=== PATIENT | male | born 1945 | race Caucasian/White ===

== ENCOUNTER 2018-07-14 07:54 | Inpatient (IN) | payer MEDICARE ==
--- OUTSIDE RECORDS SUMMARY | 2018-07-14 08:25 | XMS REPORT | Continuity of Care Document ---
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 Active eye, mild stage Onset: 04/23/2015 Mucopurulent conjunctivitis Aamir Duron O.D. 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 Active Onset: 07/01/2014 Scarred macula Aamir Duron O.D. Active Onset: 07/01/2014 Nuclear senile cataract Aamir Duron O.D. Active Onset: 07/01/2014 Vitreous degeneration Aamir Durno O.D. Active Onset: 11/18/2013 Glaucoma Aamir Duron O.D. Active Family History Date Family Member(s) Problem(s) Comments General Noncontributory Father due to Pneumonia () Father Arthritis Mother due to Congestive Heart Failure () Mother Age-Related Macular Degeneration Mother Glasses Mother Arthritis Mother Cancer Mother Heart Disease Social History Type Date Description Comments Sex Unknown ETOH Use Occasionally consumed alcohol in the past Tobacco Use Start: Unknown End: Unknown Patient is a former smoker Smoking Status Reviewed: 06/24/18 Patient is a former smoker Allergies, Adverse Reactions, Alerts Date Description Reaction Status Severity Comments 11/18/2013 Statins Active 11/18/2013 Tricor Active 11/18/2013 Seasonal Active 11/18/2013 Adhesives Active 11/18/2013 Codeine Active 11/18/2013 Latex Active Medications Medication Date Status Form Strength Qnty SIG Indications Ordering Provider Latanoprost 12/19/ Active Solution 0.005% 2.5un 1 drop Aamir 2017 its QHS OS Otoole, OD Alphagan P 12/19/ Active Solution 0.1% 5ml 1 drop Aamir 2017 twice a Otoole, day left OD eye Patanol 11/29/ Active Solution 0.1% 5ml 1 drop H40.89 Paul 2015 both Mullins, eyes M.D. twice a day during allergy season Escitalopram / Active Tablets 20mg Unknown Oxalate 0000 Loperamide HCL / Active Capsules 2mg Scott Duff MD Sucralfate / Active Tablets 1gm Unknown 0000 Tudorza Pressair / Active Aerosol 400mcg/Ac Unknown 0000 t Budesonide / Active Suspension 0.5mg/2ML Unknown 0000 Omeprazole / Active Capsules DR 40mg Brad Scott AVILEZ Divalproex Sodium / Active Tablets ER 500mg Unknown ER 0000 24HR Clonazepam Odt / Active Tablets 0.25mg Unknown 0000 Dispers Metolazone / Active Tablets 2.5mg Brad 0000 Scott AVILEZ Lovaza / Active Capsules 1gm Brad 0000 Scott AVILEZ Montelukast / Active Tablets 10mg Unknown Sodium 0000 Trihexyphenidyl / Active Tablets 5mg Unknown HCL 0000 Zyflo CR / Active Tablets ER 600mg Brad 0000 12HR Scott AVILEZ Torsemide / Active Tablets 20mg Brad 0000 Scott AVILEZ Latuda / Active Tablets 80mg Unknown 0000 Potassium / Active Tablets ER 10Meq Unknown Chloride ER 0000 Albuterol Sulfate / Active Nebulizer (2.5mg/3M Unknown 0000 L) 0.083% Prednisone / Active Tablets 10mg Unknown 0000 Latuda / Active Tablets 60mg Unknown 0000 Hydrocodone/Aceta / Active Tablets 10-325mg Unknown minophen 0000 Advair Diskus / Active Aerosol 500-50mcg Unknown 0000 /Dose Xopenex HFA / Active Aerosol 45mcg/Act Unknown 0000 Allopurinol / Active Tablets 300mg [place] 0000 Scott AVILEZ Ibuprofen / Active Tablets 600mg Unknown 0000 Colcrys / Active Tablets 0.6mg Endo MD, 0000 Dale Abilify / Active Tablets 5mg Unknown 0000 Budesonide / Active Suspension 0.5mg/2ML Unknown 0000 Divalproex Sodium / Active Tablets ER 500mg Unknown ER 0000 24HR Proair HFA / Active Aerosol 108(90Bas Unknown 0000 e) mcg/Act Topiramate / Active Tablets 100mg Unknown 0000 Latanoprost 12/27/ Hx Solution 0.005% 7.5ml 1 drops H40.32x1 Aamir 2016 - QHS OS Otoole, 12/19/ OD 2018 Alphagan P 12/27/ Hx Solution 0.1% 5ml 1 drops H40.32x1 Aamir 2016 - twice a Otoole, 12/19/ day left OD 2018 eyes Latanoprost 03/01/ Hx Solution 0.005% 7.500 1 drops H40.32x1 Paul 2015 - ml left Harpreet, 12/27/ eyes M.D. 2017 every night Alphagan P 03/01/ Hx Solution 0.1% 15ml 1 drop H40.32x1 Paul 2015 - left Mullins, 12/27/ eyes M.D. 2016 twice a day Moxeza 04/23/ Hx Solution 0.5% 3ml 1 drop H10.023 Aamir 2014 - both Oliverio, 07/21/ eyes two O.D. 2015 times a day for one week Prednisolone 03/26/ Hx Suspension 1% 5ml 1 drop H15.112 Aamir Anderson 2014 - left eye Oliverio, 04/23/ four O.D. 2015 times a day, shake well Alphagan P 08/20/ Hx Solution 0.1% 10ml 2 drops H40.89 Aamir 2014 - left eye Oliverio, 03/01/ twice a O.D. 2015 day Patanol 04/21/ Hx Solution 0.1% 5ml 1 drop 365.89 Aamir 2013 - both Oliverio, 07/21/ eyes O.D. 2015 twice a day during allergy season Tobradex 11/18/ Hx Suspension 0.3-0.1% 1ml 1 drops Aamir 2013 - both Oliverio, 07/01/ eyes O.D. 2013 four times a day Latanoprost 11/18/ Hx Solution 0.005% 7.5ml 2 drops H40.89 Aamir 2013 - left eye Oliverio, 03/01/ every O.D. 2015 night Potassium / Hx Tablets ER 10Meq [place] Chloride ER 0000 Lanny AVILEZ, Scott 2017 Allopurinol / Hx Tablets 100mg Brad 0000 Lanny AVILEZ, Scott 2016 Hydrocodone/Aceta /00/ Hx Tablets 10-325mg [place] minophen 0000 Lanny AVILEZ, Scott 2016 Hydrocodone/Aceta 00/00/ Hx Tablets 10-325mg Unknown minophen 0000 - 2016 Clonazepam / Hx Tablets 0.5mg Unknown 0000 - 2017 Mupirocin / Hx Ointment 2% Brad Ca MD, Scott 2017 Cephalexin 00/ Hx Capsules 500mg Unknown 0000 - 2017 Immunizations Description No Information Available Vital Signs Date Vital Result Comment 06/24/2018 2:39pm Intraocular Pressure Right Eye 28 mmHg tonopen Intraocular Pressure Left Eye 22 mmHg 04/23/2018 1:52pm Intraocular Pressure Right Eye 30 mmHg tonopen Intraocular Pressure Left Eye 18 mmHg 12/19/2017 2:05pm Intraocular Pressure Right Eye 16 mmHg Intraocular Pressure Left Eye 18 mmHg 08/21/2017 2:26pm Intraocular Pressure Right Eye 16 mmHg Intraocular Pressure Left Eye 16 mmHg 04/20/2017 2:50pm Intraocular Pressure Left Eye 12 mmHg 12/27/2016 2:33pm Intraocular Pressure Right Eye 13 mmHg Intraocular Pressure Left Eye 12 mmHg 09/25/2016 1:47pm Intraocular Pressure Right Eye 15 mmHg Intraocular Pressure Left Eye 13 mmHg 06/22/2016 11:16am Intraocular Pressure Right Eye 14 mmHg Intraocular Pressure Left Eye 14 mmHg 03/01/2016 2:17pm Intraocular Pressure Right Eye 14 mmHg Intraocular Pressure Left Eye 16 mmHg 11/30/2015 1:24pm Intraocular Pressure Right Eye 16 mmHg Intraocular Pressure Left Eye 17 mmHg 07/21/2015 11:35am Intraocular Pressure Right Eye 14 mmHg Intraocular Pressure Left Eye 19 mmHg 04/01/2015 2:15pm Intraocular Pressure Left Eye 16 mmHg 03/26/2015 11:45am Intraocular Pressure Left Eye 18 mmHg 03/04/2015 11:18am Intraocular Pressure Right Eye 17 mmHg Intraocular Pressure Left Eye 14 mmHg 02/22/2015 2:08pm Intraocular Pressure Right Eye 15 mmHg Intraocular Pressure Left Eye 23 mmHg 01/04/2015 2:42pm Intraocular Pressure Right Eye 14 mmHg Intraocular Pressure Left Eye 22 mmHg 07/01/2014 10:08am Intraocular Pressure Right Eye 14 mmHg Intraocular Pressure Left Eye 15 mmHg 04/21/2014 2:37pm Intraocular Pressure Right Eye 13 mmHg Intraocular Pressure Left Eye 13 mmHg 12/29/2013 3:58pm Intraocular Pressure Right Eye 17 mmHg Intraocular Pressure Left Eye 19 mmHg 11/18/2013 1:24pm Intraocular Pressure Right Eye 16 mmHg Intraocular Pressure Left Eye 27 mmHg Results Description No Information Available Procedures Date Code Description Status 06/24/2018 20909 Eye Exam Est Intermediate Completed 04/23/2018 42478 Eye Exam Est Intermediate Completed 12/19/2017 29376 Oct, Optic Nerve Completed 12/19/2017 04116 Eye Exam Est Intermediate Completed 08/21/2017 29646 Visual Field Exam Extended, Unilateral Or Bilateral Completed 08/21/2017 66037 Eye Exam Est Intermediate Completed 04/20/2017 48181 Ophthalmoscopy Subsequent Completed 04/20/2017 17194 Eye Exam Est Intermediate Completed 12/27/2016 66660 Eye Exam Est Intermediate Completed 09/25/2016 68807 Eye Exam Est Intermediate Completed 06/22/2016 71770 Eye Exam Est Intermediate Completed 03/01/2016 25875 Oct, Optic Nerve Completed 03/01/2016 12424 Eye Exam Est Intermediate Completed 11/30/2015 22534 Eye Exam Est Comprehensive Completed 11/30/2015 87961 Ophthalmoscopy Subsequent Completed 11/30/2015 70352 Fundus Photography W/Interpretation & Report Completed 07/21/2015 44030 Visual Field Exam Extended, Unilateral Or Bilateral Completed 07/21/2015 17811 Eye Exam Est Intermediate Completed 03/26/2015 99681 Eye Exam Est Intermediate Completed 03/04/2015 21839 Oct, Optic Nerve Completed 03/04/2015 11581 Eye Exam Est Intermediate Completed 02/22/2015 97845 Eye Exam Est Intermediate Completed 07/01/2014 94583 Fundus Photography W/Interpretation & Report Completed 07/01/2014 09733 Eye Exam Est Comprehensive Completed 04/21/2014 74342 Visual Field Exam Extended, Unilateral Or Bilateral Completed 04/21/2014 32687 Eye Exam Est Intermediate Completed 11/18/2013 95784 Oct, Optic Nerve Completed 11/18/201376803 Eye Exam Est Intermediate Completed Encounters Type Date Location Provider Dx Diagnosis Office Visit 04/23/2015 Main Office Aamir Duron, H10.023 Other mucopurulent 9:45a O.D. conjunctivitis, bilateral Office Visit 04/01/2015 Main Office Aamir Duron, H15.112 Episcleritis 1:45p O.D. periodica fugax, left eye Office Visit 01/04/2015 Main Office Aamir Duron, 365.89 Glaucoma Other Spec 2:15p O.D. Office Visit 12/29/2013 Main Office Aamir Duron, 365.89 Glaucoma Other Spec 3:15p O.D. 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
--- OUTSIDE RECORDS SUMMARY | 2018-07-14 08:25 | XMS REPORT | Continuity of Care Document ---
:1945 External Reference #:[id number] Author Name Jules Varela M.D. Address [address] [facility] [place] [address] [place] [address] Care Team Providers Name Role Phone Scott Salinas MD Primary Care Physician Unavailable Payers Type Date Identification Numbers Payment Provider Subscriber Expires: 2012 Policy Number: [id number] [facility] Caitlin Martinez Group Number: [id number] [address] PayID: [id number] [place] [address] Effective: 1997 Policy Number: [id number] Medicare Lenny Martinez PayID: [id number] [address] [facility] [place] [address] Effective: 1997 Policy Number: [id number] Medicare Lenny Martinez Expires: 2013 PayID: [id number] [address] [facility] [address] Effective: 2018 Policy Number: [id number] Medicaid Lenny Martinez Group Name: 1 1 [address] PayID: [id number] [place] [address] Advance Directives Description No Information Available Problems Date Description Provider Status Onset: 10/01/2012 Gout Dale Esteves M.D. Active Onset: 10/23/2014 Localized, primary osteoarthritis Dale Esteves M.D. Active Onset: 10/23/2014 Chronic obstructive lung disease Dale Esteves M.D. Active Onset: 03/08/2015 Essential tremor Pauline Perdue NP Active Onset: 03/16/2016 Displaced fracture of base of neck of Bridger Pepe M.D. Active right femur, subsequent encounter for closed fracture with routine healing Onset: 03/16/2016 Aftercare following joint replacement Bridger Pepe M.D. Active surgery Family History Date Family Member(s) Problem(s) Comments General MOther had cancer, SIster has MS General Father had heart disease, high blood pressure and stroke Father due to Stroke () Father due to Heart Disease () Mother due to COPD () Mother due to Cancer, Breast () Social History Type Date Description Comments Sex Unknown Lives [facility] Occupation Retired Tobacco Use Start: Unknown Patient is a current cigarette smoker, smokes every day Tobacco Use Start: Unknown currently smokes 1/2 Pack Daily Smoking Status Reviewed: 02/05/18 currently smokes 1/2 Pack Daily ETOH Use Denies alcohol use Tobacco Use Start: Unknown End: Patient is a former quit in 2014 Unknown smoker Exercise Type/Frequency Exercises rarely Allergies, Adverse Reactions, Alerts Date Description Reaction Status Severity Comments 10/01/2012 Codeine Active 10/01/2012 Statins Active 10/01/2012 Tricor Active 03/24/2014 Latex Contact dermatitis Active Moderate 10/07/2014 Adhesive Tape Active Medications Medication Date Status Form Strength Qnty SIG Indications Ordering Provider Clonazepam 10/11 Active Tablets 0.5mg 90tab 1 by mouth s three times a alek Varela M.DAdela Gabapentin 05/17 Active Capsules 300mg 270ca 3 by mouth ps three times a alek Varela M.DAdela Allopurinol 12/24 Active Tablets 300mg 90tab take one M10.9 Zsofia s tablet by Cristhian, mouth every ROPE CUTTER day Omeprazole 10/[address] 40mg 60cap 1 po bid s Ordering Provider Albuterol 10/01 Active Nebulizer (2.5mg/3M 100un inhale three Other L) 0.083% its ml three Ordering times a day Provider Multivitamins 10/01 Active Capsules 30cap 1 capsule s silvio;y Ordering Provider Singulair 10/01 Active Tablets 10mg 90tab 1 po qd s Ordering Provider Potassium 10/01 Active Tablets ER 10Meq 60tab 5 caps ad Other Chloride s Ordering Provider Prednisone 10/01 Active Tablets 10mg 30tab 1/2 tab po /2012 s daily Ordering Provider Xopenex HFA Active Aerosol 45mcg/Act 1unit 2 puffs qid Unknown / s prn Sucralfate Active Tablets 1gm 60tab 1 by mouth Unknown / s tid Divalproex Active Tablets ER 500mg 60tab take 2 tabs Unknown Sodium ER /0000 24HR s by mouth at bedtime Tudorza Active Aerosol 400mcg/Ac 60uni 1 puff bid Unknown Pressair t ts Budesonide Active Suspension 0.5mg/2ML 60uni 1 vial via Unknown ts nebulizer twice daily Advair Diskus Active Aerosol 500-50mcg 60uni 1 puff twice Unknown /0000 /Dose ts a day Lovaza Active Capsules 1gm 180ca 1 by mouth Unknown / ps tid Torsemide Active Tablets 20mg 90tab 1 by mouth Unknown / s every day Loperamide HCL Active Tablets 2mg 20tab qid prn Unknown / s Lantanoprost Active 0.005% 1 gtt to L Unknown Eye Drops /0000 eye qhs Patanol Active Solution 0.1% 1 drop both Unknown /0000 eyes every day as needed allergies Acetaminophen Active Tablets 500 two tabs Unknown /0000 twice daily as needed Metolazone Active Tablets 2.5mg take one Unknown / tablet by mouth every other day Brimonidine Active Solution 0.15% instill one Unknown Tartrate /0000 drop in each eye two times daily Tamsulosin HCL Active Capsules 0.4mg 1 by mouth Unknown / every day Miralax Active Packet 3350NF 17 gm every Unknown / day as needed Olopatadine Active Solution 0.1% 1 drop in Unknown HCL /0000 eyes twice a day Propranolol Active Tablets 20mg 3 x per day Unknown HCL /0000 as directed Clotrimazole Active Cream 1% apply qw Unknown / Desloratadine Active Tablets 5mg 1 po qd Unknown / Saphris Active Tablets Sub 5mg Unknown /0000 Fluticasone 00/00 Active Suspension 50mcg/Act 2 sprays in Unknown Propionate 0000 nose daily Dextromethorph Active Solution 10-100mg/ 5ml every 4 Unknown an-Guaifenesin /0000 5ML hours as needed for cough Nicotine Mini Active Lozenges 4mg one lozenge Unknown as needed every 6-8 hours as needed Diclofenac 00 Active Solution 1.5% 40 drops onto Zsofia skin of Cristhian, bilateral ROPE CUTTER knees four times daily Mucinex Active Tablets ER 600mg twice a day Unknown 12HR as needed Voltaren 10/25 Hx Gel 1% 1tube apply to M79.643 s affected area Cristhian, - twice a day, ROPE CUTTER 08/22 as needed /2016 Primidone 08/06 Hx Tablets 50mg 180ta Take 3 tabs Jules S. bs bid Lanny Varela M.D. 09/13 Topiramate 03/03 Hx Tablets 100mg 60tab 1 po bid s GUILHERME Perdue - 09/19 Topiramate 12/30 Hx Tablets 25mg 120ta 1 tab qam x 2 bs wks, then 2 GUILHERME Perdue - tabs qam x 2 04/13 wks, then tabs qam x 2 wks, then 4 tabs qam (please also take 100mg dose PO QHS) Topiramate 10/07 Hx Tablets 25mg 210ta 3 po qhs then bs 4 po qhs. GUILHERME Perdue - 12/29 Clonazepam 03/25 Hx Tablets 0.25mg 1-2 by mouth Dispers four times a Ordering - day as needed Provider 03/25 Allopurinol 09/26 Hx Tablets 100mg 60tab 2 po qd 274.9 rafita Esteves - M.DAdela 12/24 Colcrys 05/27 Hx Tablets 0.6mg 30tab Take One 274.9 s Tablet By Linn, - Mouth Once M.D. 05/29 /2012 Zyflo 10/01 Hx Tablets 600mg 2 tabs by Other mouth bid Ordering - Provider 08/22 Ventolin HFA 10/01 Hx Aerosol 108(90Bas 1mont 2 puffs po Other e) h qid prn Ordering - mcg/Act Provider 03/02 Pulmicort 10/01 Hx Suspension 0.5mg/2ML 30uni one reespule ts per day to Ordering - add to Provider 12/29 soult Clonazepam 10/01 Hx Tablets 0.5mg 60tab 1 po bid prn Other s Ordering - Provider 03/25 Lexapro 10/01 Hx Tablets 20mg 90tab 1 po qd s Ordering - Provider 09/13 Depakote ER 10/01 Hx Tablets ER 500mg 60tab 2 po bid 24HR s Ordering - Provider 03/23 Abilify 10/01 Hx Tablets 20mg 30tab 1 po qd s Ordering - Provider 05/29 Torsemide 10/01 Hx Tablets 20mg 100ta bid Lanny Crouch M.D. 09/26 Advair Diskus 10/01 Hx Aerosol 500-50mcg 2unit 1 puff po bid /Dose s Lanny Esteves M.D. 09/26 Hydrocodone/Ac 10/01 Hx Tablets 5-325mg 60tab 1-2 po qid Other etamin s prn Ordering - Provider 10/06 Ibuprofen 10/01 Hx Tablets 600mg 120ta 1 po tid prn bs Ordering - Provider 12/24 Lovaza 10/01 Hx Capsules 1gm 60cap 1 po bid Lanny Munoz M.D. 09/26 Allopurinol 10/01 Hx Tablets 300mg 90tab 1 po qd s Lanny Esteves M.D. 09/26 Colchicine 10/01 Hx Tablets 0.6mg 30tab 1 po qd 274.9 Lanny Munoz M.D. 05/27 Zaroxolyn Hx Tablets 2.5mg 30tab 1 tab q2 days Unknown /0000 s - 12/29 Bactroban Hx Ointment 2% 15g apply to Unknown /0000 affected area - bid 03/25 Latuda Hx Tablets 40mg 1 po qd Unknown /0000 - 08/22 Clonazepam 00 Hx Tablets 0.25mg 60tab 1 by mouth Jules S. / Dispers s every morning Nichole, - and 1 every M.D. 10/11 night at bedtime Gabapentin 00 Hx Capsules 300mg 1 by mouth Unknown /0000 every morning - in addition 04/26 to 600MG dose /2014 Gabapentin Hx Tablets 600mg 1 by mouth Jules S. / three times Nichole, - daily M.D. 05/17 Naftin Hx Cream 1% topically to Unknown /0000 affected area - between toes 09/13 twice daily Hydrocodone-Ac Hx Tablets 5-325mg 1 by mouth Unknown etaminophen /0000 every 4-6 - hours prn. 09/19 Amoxicillin/Cl Hx Tablets 875-125mg one tablet by Unknown avulanate /0000 mouth twice Potassium - daily for 10 Alphagan P Hx Solution 0.1% 2 drop left Unknown /0000 eye every - evening 08/22 Vitamin D Hx daily Unknown /0000 - 08/22 Saphris Hx Tablets Sub 10mg 1 tab Unknown / sublingually - bid 08/23 Clarinex Hx Tablets 5mg 1 by mouth Unknown /0000 every day - 09/13 Senna Lax Hx Tablets 8.6mg take 2 Unknown /0000 tablets by - mouth at 02/04 bedtime needed: max 4 tablets by mouth two times a day Potassium Hx Tablets ER 10Meq 1 by mouth Unknown Chloride ER /0000 every day - 09/13 Immunizations Description No Information Available Vital Signs Date Vital Result Comment 02/05/2018 1:54pm Height 67 inches 5'7" Weight 197.00 lb Heart Rate 70 /min BP Systolic 118 mmHg BP Diastolic 68 mmHg BMI (Body Mass Index) 30.9 kg/m2 07/31/2017 2:03pm Height 67 inches 5'7" Weight 190.00 lb Heart Rate 72 /min BP Systolic Sitting 128 mmHg BP Diastolic Sitting 66 mmHg Respiratory Rate 18 /min BMI (Body Mass Index) 29.8 kg/m2 01/30/2017 1:32pm Height 67 inches 5'7" Weight 195.00 lb Heart Rate 92 /min BP Systolic Sitting 98 mmHg BP Diastolic Sitting 64 mmHg Respiratory Rate 32 /min BMI (Body Mass Index) 30.5 kg/m2 10/11/2016 3:05pm Height 67 inches 5'7" Weight 197.00 lb Heart Rate 72 /min BP Systolic Sitting 128 mmHg BP Diastolic Sitting 68 mmHg Respiratory Rate 17 /min BMI (Body Mass Index) 30.9 kg/m2 08/23/2016 3:42pm Height 67 inches 5'7" Weight 204.00 lb Heart Rate 77 /min BP Systolic Sitting 127 mmHg BP Diastolic Sitting 67 mmHg Respiratory Rate 17 /min BMI (Body Mass Index) 31.9 kg/m2 05/17/2016 11:43am Height 67 inches 5'7" Weight 217.00 lb Heart Rate 88 /min BP Systolic Sitting 132 mmHg BP Diastolic Sitting 74 mmHg BMI (Body Mass Index) 34.0 kg/m2 04/26/2016 1:40pm Height 67 inches 5'7" Weight 222.00 lb per patient Heart Rate 86 /min BP Systolic Sitting 132 mmHg BP Diastolic Sitting 72 mmHg Pain Level 5 5/10 pain level BMI (Body Mass Index) 34.8 kg/m2 04/26/2016 12:55pm Height 67 inches 5'7" Weight 234.00 lb Heart Rate 100 /min BP Systolic Sitting 120 mmHg BP Diastolic Sitting 70 mmHg Respiratory Rate 16 /min Body Temperature 96.9 F Pain Level 6 BMI (Body Mass Index) 36.6 kg/m2 03/16/2016 2:29pm Height 67 inches 5'7" Weight 234.00 lb BMI (Body Mass Index) 36.6 kg/m2 11/16/2015 2:41pm Height 67 inches 5'7" Weight 234.00 lb Heart Rate 84 /min BP Systolic Sitting 128 mmHg BP Diastolic Sitting 72 mmHg Respiratory Rate 20 /min BMI (Body Mass Index) 36.6 kg/m2 10/26/2015 1:56pm Height 67 inches 5'7" Weight 240.00 lb Heart Rate 88 /min BP Systolic Sitting 124 mmHg BP Diastolic Sitting 68 mmHg Pain Level 5 BMI (Body Mass Index) 37.6 kg/m2 09/21/2015 10:46am Height 67 inches 5'7" Heart Rate 72 /min BP Systolic Sitting 134 mmHg BP Diastolic Sitting 82 mmHg Respiratory Rate 15 /min 08/06/2015 10:27am Height 67 inches 5'7" Weight 230.00 lb Heart Rate 80 /min BP Systolic Sitting 128 mmHg BP Diastolic Sitting 62 mmHg Respiratory Rate 20 /min BMI (Body Mass Index) 36.0 kg/m2 04/26/2015 3:33pm Height 67 inches Weight 236.00 lb Heart Rate 104 /min BP Systolic Sitting 120 mmHg BP Diastolic Sitting 76 mmHg Respiratory Rate 38 /min Pain Level 5 BMI (Body Mass Index) 37.0 kg/m2 03/03/2015 3:15pm Heart Rate 84 /min BP Systolic Sitting 112 mmHg BP Diastolic Sitting 64 mmHg Respiratory Rate 16 /min 12/30/2014 1:16pm Heart Rate 64 /min BP Systolic Sitting 120 mmHg BP Diastolic Sitting 66 mmHg Respiratory Rate 16 /min 10/23/2014 2:01pm Height 70 inches 5'10" Weight 241.00 lb Heart Rate 88 /min BP Systolic Sitting 124 mmHg BP Diastolic Sitting 60 mmHg Pain Level 4 BMI (Body Mass Index) 34.6 kg/m2 10/07/2014 10:12am Height 70 inches 5'10" Weight 241.00 lb Heart Rate 60 /min BP Systolic Sitting 124 mmHg BP Diastolic Sitting 64 mmHg Respiratory Rate 16 /min BMI (Body Mass Index) 34.6 kg/m2 03/24/2014 2:07pm Height 70 inches 5'10" Weight 237.00 lb stated Heart Rate 96 /min BP Systolic 116 mmHg BP Diastolic 78 mmHg Pain Level 2 BMI (Body Mass Index) 34.0 kg/m2 12/24/2013 2:07pm Height 70 inches 5'10" Weight 239.00 lb Heart Rate 88 /min BP Systolic Sitting 106 mmHg BP Diastolic Sitting 64 mmHg Pain Level 8 O2 % BldC Oximetry 96 % 5 liter02 BMI (Body Mass Index) 34.3 kg/m2 09/26/2013 1:00pm Height 70 inches 5'10" Weight 258.00 lb Heart Rate 75 /min BP Systolic Sitting 114 mmHg BP Diastolic Sitting 68 mmHg BMI (Body Mass Index) 37.0 kg/m2 05/29/2013 1:04pm Height 70 inches 5'10" Weight 257.00 lb Heart Rate 88 /min BP Systolic Sitting 120 mmHg BP Diastolic Sitting 76 mmHg BMI (Body Mass Index) 36.9 kg/m2 10/01/2012 3:18pm Height 70 inches 5'10" Weight 246.00 lb Heart Rate 86 /min BP Systolic Sitting 136 mmHg BP Diastolic Sitting 76 mmHg BMI (Body Mass Index) 35.3 kg/m2 Results Test Date Facility Test Result H/L Range Note CBC W/Manual 05/13/2013 [facility] White Blood 12.9 10^3/uL High 4.8-10.[address] [place] [address] [phone] Red Blood Count 5.24 10^6/uL 4.0-5.4 Hemoglobin 15.1 g/dL 14.0-18.0 Hematocrit 46 % 42-52 Mean Corpuscular Volume 88 fL 80-94 Mean Corpuscular Hemoglobin 29 pg 27-31 Mean Corpuscular HGB Conc 33 g/dL 31-36 Red Cell Distribution Width 17 % High 10.5-15 Platelet Count 198 10^3/uL 150-450 Mean Platelet Volume 7 um3 Low 7.4-10.4 Abs Neutrophils 9.8 10^3/uL High 1.5-7.7 Abs Lymphocytes 1.7 10^3/uL 1.0-4.8 Abs Monocytes 1.1 10^3/uL High 0-0.8 Abs Eosinophils 0.2 10^3/uL 0-0.6 Abs Basophils 0 10^3/uL 0-0.2 Abs Nucleated RBC 0.01 10^3/uL Neutrophil % 75 % 38-83 Lymphocytes % 9 % Low 25-47 Monocytes % 14 % High 0-13 Eosinophils % 1 % 0-6 Reactive Lymph % 1 % 0-6 Stomatocytes 1+ CMP Panel 05/13/2013 [facility] Sodium 133 mmol/L 133-[address] [place] [address] [phone] Potassium 3.2 mmol/L Low 3.5-5.0 Chloride 83 mmol/L Low 101-111 Co2 Carbon Dioxide 36.0 mmol/L High 22-32 Anion Gap 14.0 mmol/L High 2-11 Glucose 166 mg/dL High 70-100 Blood Urea Nitrogen 47 mg/dL High 6-24 Creatinine 2.20 mg/dL High 0.50-1.40 BUN/Creatinine Ratio 21.4 High 8-20 Calcium 10.1 mg/dL High 8.1-9.9 Total Protein 6.8 g/dL 6.2-8.1 Albumin 4.0 g/dL 3.2-5.2 Globulin 2.8 g/dL 2-4 Albumin/Globulin Ratio 1.4 1-3 Total Bilirubin 0.9 mg/dL 0.4-1.5 Alkaline Phosphatase 69 U/L 30-110 Alt 23 U/L 14-54 Ast 28 U/L 12-42 Egfr Non- 30.1 >60 Egfr 38.7 >60 1 Laboratory test 05/13/2013 [facility] Erythrocyte Sed 18 mm/Hr 0-[address] [place] [address] [phone] C Reactive Protein 2.6 mg/dL High Less than 0.5 Uric Acid 8.1 mg/dL High 2.6-7.2 CBC With 04/11/2013 [facility] White Blood 7.3 10^3/uL 4.8- 10.8 Manual Diff [address] [place] [address] [phone] Red Blood Count 4.78 10^6/uL 4.0-5.4 Hemoglobin 13.5 g/dL Low 14.0-18.0 Hematocrit 42 % 42-52 Mean Corpuscular Volume 89 fL 80-94 Mean Corpuscular Hemoglobin 28 pg 27-31 Mean Corpuscular HGB Conc 32 g/dL 31-36 Red Cell Distribution Width 17 % High 10.5-15 Platelet Count 153 10^3/uL 150-450 Mean Platelet Volume 7 um3 Low 7.4-10.4 Abs Neutrophils 5.3 10^3/uL 1.5-7.7 Abs Lymphocytes 1.2 10^3/uL 1.0-4.8 Abs Monocytes 0.5 10^3/uL 0-0.8 Abs Eosinophils 0.1 10^3/uL 0-0.6 Abs Basophils 0 10^3/uL 0-0.2 Abs Nucleated RBC 0 10^3/uL Neutrophil % 64 % 38-83 Band % 3 % 0-8 Lymphocytes % 25 % 25-47 Monocytes % 7 % 0-13 Eosinophils % 1 % 0-6 RBC Morphology Normal Normal Comp Metabolic Panel 04/11/2013 [facility] Sodium 141 mmol/L 133-[address] [place] [address] [phone] Potassium 4.1 mmol/L 3.5-5.0 Chloride 97 mmol/L Low 101-111 Co2 Carbon Dioxide 36.0 mmol/L High 22-32 Anion Gap 8.0 mmol/L 2-11 Glucose 114 mg/dL High 70-100 Blood Urea Nitrogen 11 mg/dL 6-24 Creatinine 1.10 mg/dL 0.50-1.40 BUN/Creatinine Ratio 10.0 8-20 Calcium 9.1 mg/dL 8.1-9.9 Total Protein 6.1 g/dL Low 6.2-8.1 Albumin 3.6 g/dL 3.2-5.2 Globulin 2.5 g/dL 2-4 Albumin/Globulin Ratio 1.4 1-3 Total Bilirubin 0.7 mg/dL 0.4-1.5 Alkaline Phosphatase 55 U/L 30-110 Alt 22 U/L 14-54 Ast 29 U/L 12-42 Egfr Non- 67.0 >60 Egfr 86.1 >60 2 Laboratory test 04/11/2013 [facility] Erythrocyte Sed 18 mm/Hr 0-[address] [place] [address] [phone] C Reactive Protein 2.0 mg/dL High Less than 0.5 Uric Acid 5.8 mg/dL 2.6-7.2 Comp Metabolic Panel 03/03/2013 [facility] Sodium 141 mmol/L 133-[address] [place] [address] [phone] Potassium 3.7 mmol/L 3.5-5.0 Chloride 92 mmol/L Low 101-111 Co2 Carbon Dioxide 43.0 mmol/L High 22-32 Anion Gap 6.0 mmol/L 2-11 Glucose 77 mg/dL 70-100 Blood Urea Nitrogen 15 mg/dL 6-24 Creatinine 0.80 mg/dL 0.50-1.40 BUN/Creatinine Ratio 18.8 8-20 Calcium 9.6 mg/dL 8.1-9.9 Total Protein 7.0 g/dL 6.2-8.1 Albumin 4.0 g/dL 3.2-5.2 Globulin 3.0 g/dL 2-4 Albumin/Globulin Ratio 1.3 1-3 Total Bilirubin 0.7 mg/dL 0.4-1.5 Alkaline Phosphatase 61 U/L 30-110 Alt 22 U/L 14-54 Ast 22 U/L 12-42 Egfr Non- 96.7 >60 Egfr 124.4 >60 3 Laboratory test 03/03/2013 [facility] Uric Acid 5.4 mg/dL 2.6 -7.[address] [place] [address] [phone] C Reactive Protein 1.0 mg/dL High Less than 0.5 CBC With 03/03/2013 [facility] White Blood 7.4 10^3/uL 4.8- 10.[address] [place] [address] [phone] Red Blood Count 4.75 10^6/uL 4.0-5.4 Hemoglobin 13.4 g/dL Low 14.0-18.0 Hematocrit 42 % 42-52 Mean Corpuscular Volume 88 fL 80-94 Mean Corpuscular Hemoglobin 28 pg 27-31 Mean Corpuscular HGB Conc 32 g/dL 31-36 Red Cell Distribution Width 17 % High 10.5-15 Platelet Count 134 10^3/uL Low 150-450 Mean Platelet Volume 7 um3 Low 7.4-10.4 Abs Neutrophils 4.9 10^3/uL 1.5-7.7 Abs Lymphocytes 1.5 10^3/uL 1.0-4.8 Abs Monocytes 0.7 10^3/uL 0-0.8 Abs Eosinophils 0.2 10^3/uL 0-0.6 Abs Basophils 0 10^3/uL 0-0.2 Abs Nucleated RBC 0.01 10^3/uL Neutrophil % 69 % 38-83 Band % 1 % 0-8 Lymphocytes % 21 % Low 25-47 Monocytes % 5 % 0-13 Eosinophils % 4 % 0-6 RBC Morphology Normal Normal Laboratory test 03/03/2013 [facility] Erythrocyte Sed 17 mm/Hr 0-[address] [place] [address] [phone] Laboratory test 01/30/2013 [facility] Uric Acid 6.0 mg/dL 2.6 -7.[address] [place] [address] [phone] C Reactive Protein 2.1 mg/dL High Less than 0.5 Comp Metabolic Panel 01/30/2013 [facility] Sodium 140 mmol/L 133-[address] [place] [address] [phone] Potassium 4.1 mmol/L 3.5-5.0 Chloride 90 mmol/L Low 101-111 Co2 Carbon Dioxide 42.0 mmol/L High 22-32 Anion Gap 8.0 mmol/L 2-11 Glucose 119 mg/dL High 70-100 Blood Urea Nitrogen 16 mg/dL 6-24 Creatinine 1.10 mg/dL 0.50-1.40 BUN/Creatinine Ratio 14.5 8-20 Calcium 9.6 mg/dL 8.1-9.9 Total Protein 6.9 g/dL 6.2-8.1 Albumin 3.8 g/dL 3.2-5.2 Globulin 3.1 g/dL 2-4 Albumin/Globulin Ratio 1.2 1-3 Total Bilirubin 0.8 mg/dL 0.4-1.5 Alkaline Phosphatase 64 U/L 30-110 Alt 32 U/L 14-54 Ast 28 U/L 12-42 Egfr Non- 67.0 >60 Egfr 86.1 >60 4 CBC With 01/30/2013 [facility] White Blood 7.3 10^3/uL 4.8- 10.8 Manual Diff [address] [place] [address] [phone] Red Blood Count 4.86 10^6/uL 4.0-5.4 Hemoglobin 13.4 g/dL Low 14.0-18.0 Hematocrit 42 % 42-52 Mean Corpuscular Volume 87 fL 80-94 Mean Corpuscular Hemoglobin 28 pg 27-31 Mean Corpuscular HGB Conc 32 g/dL 31-36 Red Cell Distribution Width 17 % High 10.5-15 Platelet Count 157 10^3/uL 150-450 Mean Platelet Volume 7 um3 Low 7.4-10.4 Abs Neutrophils 5.9 10^3/uL 1.5-7.7 Abs Lymphocytes 0.8 10^3/uL Low 1.0-4.8 Abs Monocytes 0.4 10^3/uL 0-0.8 Abs Eosinophils 0.1 10^3/uL 0-0.6 Abs Basophils 0 10^3/uL 0-0.2 Abs Nucleated RBC 0 10^3/uL Neutrophil % 77 % 38-83 Band % 7 % 0-8 Lymphocytes % 9 % Low 25-47 Monocytes % 6 % 0-13 Eosinophils % 1 % 0-6 Macrocytosis 1+ Microcytosis 1+ Laboratory test 01/30/2013 [facility] Erythrocyte Sed 29 mm/Hr 0-[address] [place] [address] [phone] Laboratory test 11/20/2012 [facility] Erythrocyte Sed 14 mm/Hr 0-[address] [place], [place] [id number] [phone] CBC With Manual 11/20/2012 [facility] White Blood 6.2 4.8- 10.[address] Count 10^3/uL [place], [place] [id number] [phone] Red Blood Count 5.07 10^6/uL 4.0-5.4 Hemoglobin 13.7 g/dL Low 14.0-18.0 Hematocrit 44 % 42-52 Mean Corpuscular Volume 86 fL 80-94 Mean Corpuscular Hemoglobin 27 pg 27-31 Mean Corpuscular HGB Conc 31 g/dL 31-36 Red Cell Distribution Width 19 % High 10.5-15 Platelet Count 141 10^3/uL Low 150-450 Mean Platelet Volume 8 um3 7.4-10.4 Abs Neutrophils 4.4 10^3/uL 1.5-7.7 Abs Lymphocytes 1.2 10^3/uL 1.0-4.8 Abs Monocytes 0.4 10^3/uL 0-0.8 Abs Eosinophils 0.2 10^3/uL 0-0.6 Abs Basophils 0 10^3/uL 0-0.2 Abs Nucleated RBC 0 10^3/uL Neutrophil % 61 % 38-83 Band % 2 % 0-8 Lymphocytes % 25 % 25-47 Monocytes % 7 % 0-13 Eosinophils % 4 % 0-6 Reactive Lymph % 1 % 0-6 Hypochromasia 1+ Basophilic Stippling 1+ Stomatocytes 1+ Laboratory test 11/20/2012 [facility] Uric Acid 5.3 mg/dL 2.6 -7.2 [address] [place] [address] [phone] C Reactive Protein 1.4 mg/dL High Less than 0.5 6 Comp Metabolic Panel 11/20/2012 [facility] Sodium 143 mmol/L 133-[address] [place] [address] [phone] Potassium 4.1 mmol/L 3.5-5.0 Chloride 89 mmol/L Low 101-111 Co2 Carbon Dioxide 46.0 mmol/L High 22-32 7 Anion Gap 8.0 mmol/L 2-11 Glucose 131 mg/dL High 70-100 Blood Urea Nitrogen 20 mg/dL 6-24 Creatinine 1.10 mg/dL 0.50-1.40 BUN/Creatinine Ratio 18.2 8-20 Calcium 9.7 mg/dL 8.1-9.9 Total Protein 6.3 g/dL 6.2-8.1 Albumin 3.6 g/dL 3.2-5.2 Globulin 2.7 g/dL 2-4 Albumin/Globulin Ratio 1.3 1-3 Total Bilirubin 0.6 mg/dL 0.4-1.5 Alkaline Phosphatase 63 U/L 30-110 Alt 21 U/L 14-54 Ast 21 U/L 12-42 Egfr Non- 67.0 >60 Egfr 86.1 >60 8 Laboratory test 10/01/2012 [facility] Erythrocyte Sed 28 mm/Hr 0-[address] [place] [address] [phone] C Reactive Protein 1.6 mg/dL High Less than 0.5 Uric Acid 5.4 mg/dL 2.6-7.2 Comp Metabolic Panel 10/01/2012 [facility] Sodium 143 mmol/L 133-[address] [place] [address] [phone] Potassium 4.1 mmol/L 3.5-5.0 Chloride 91 mmol/L Low 101-111 Co2 Carbon Dioxide 45.0 mmol/L High 22-32 Anion Gap 7.0 mmol/L 2-11 Glucose 91 mg/dL 70-100 Blood Urea Nitrogen 18 mg/dL 6-24 Creatinine 1.00 mg/dL 0.50-1.40 BUN/Creatinine Ratio 18.0 8-20 Calcium 9.8 mg/dL 8.1-9.9 Total Protein 7.2 g/dL 6.2-8.1 Albumin 3.7 g/dL 3.2-5.2 Globulin 3.5 g/dL 2-4 Albumin/Globulin Ratio 1.1 1-3 Total Bilirubin 0.6 mg/dL 0.4-1.5 Alkaline Phosphatase 80 U/L 30-110 Alt 14 U/L 14-54 Ast 17 U/L 12-42 Egfr Non- 74.8 >60 Egfr 96.1 >60 9 CBC With 10/01/2012 [facility] White Blood 9.0 10^3/uL 4.8- 10.8 Manual Diff [address] [place] [address] [phone] Red Blood Count 5.17 10^6/uL 4.0-5.4 Hemoglobin 13.5 g/dL Low 14.0-18.0 Hematocrit 43 % 42-52 Mean Corpuscular Volume 83 fL 80-94 Mean Corpuscular Hemoglobin 26 pg Low 27-31 Mean Corpuscular HGB Conc 32 g/dL 31-36 Red Cell Distribution Width 21 % High 10.5-15 Platelet Count 170 10^3/uL 150-450 Mean Platelet Volume 7 um3 Low 7.4-10.4 Abs Neutrophils 6.5 10^3/uL 1.5-7.7 Abs Lymphocytes 1.5 10^3/uL 1.0-4.8 Abs Monocytes 0.7 10^3/uL 0-0.8 Abs Eosinophils 0.3 10^3/uL 0-0.6 Abs Basophils 0 10^3/uL 0-0.2 Abs Nucleated RBC 0.01 10^3/uL Neutrophil % 74 % 38-83 Band % 3 % 0-8 Lymphocytes % 12 % Low 25-47 Monocytes % 6 % 0-13 Eosinophils % 2 % 0-6 Basophil % 2 % 0-2 Reactive Lymph % 1 % 0-6 Hypochromasia 1+ Stomatocytes 1+ 1 Because ethnic data is not always readily available, this report includes an eGFR for both -Americans and non- Americans. The National Kid[employer] Education Program (NKDEP) does not endorse the use of the MDRD equation for patients that are not between the ages of 18 and 70, are , have extremes of body size, muscle mass, or nutritional status, or are non- or non-. According to the National Kidney Foundation, irrespective of diagnosis, the stage of the disease is based on the level of kidney function: Stage Description GFR(mL/min/1.73 m(2)) 1 Kidney damage with normal or decreased GFR 90 2 Kidney damage with mild decrease in GFR 60-89 3 Moderate decrease in GFR 30-59 4 Severe decrease in GFR 15-29 5 Kidney failure <15 (or dialysis) 2 Because ethnic data is not always readily available, this report includes an eGFR for both -Americans and non- Americans. The National Kidney Disease Education Program (NKDEP) does not endorse the use of the MDRD equation for patients that are not between the ages of 18 and 70, are , have extremes of body size, muscle mass, or nutritional status, or are non- or non-. According to the National Kidney Foundation, irrespective of diagnosis, the stage of the disease is based on the level of kidney function: Stage Description GFR(mL/min/1.73 m(2)) 1 Kidney damage with normal or decreased GFR 90 2 Kidney damage with mild decrease in GFR 60-89 3 Moderate decrease in GFR 30-59 4 Severe decrease in GFR 15-29 5 Kidney failure <15 (or dialysis) 3 Because ethnic data is not always readily available, this report includes an eGFR for both -Americans and non- Americans. The National Kidney Disease Education Program (NKDEP) does not endorse the use of the MDRD equation for patients that are not between the ages of 18 and 70, are , have extremes of body size, muscle mass, or nutritional status, or are non- or non-. According to the National Kidney Foundation, irrespective of diagnosis, the stage of the disease is based on the level of kidney function: Stage Description GFR(mL/min/1.73 m(2)) 1 Kidney damage with normal or decreased GFR 90 2 Kidney damage with mild decrease in GFR 60-89 3 Moderate decrease in GFR 30-59 4 Severe decrease in GFR 15-29 5 Kidney failure <15 (or dialysis) 4 Because ethnic data is not always readily available, this report includes an eGFR for both -Americans and non- Americans. The National Kidney Disease Education Program (NKDEP) does not endorse the use of the MDRD equation for patients that are not between the ages of 18 and 70, are , have extremes of body size, muscle mass, or nutritional status, or are non- or non-. According to the National Kidney Foundation, irrespective of diagnosis, the stage of the disease is based on the level of kidney function: Stage Description GFR(mL/min/1.73 m(2)) 1 Kidney damage with normal or decreased GFR 90 2 Kidney damage with mild decrease in GFR 60-89 3 Moderate decrease in GFR 30-59 4 Severe decrease in GFR 15-29 5 Kidney failure <15 (or dialysis) 5 Verbal to answering service at 1911 on 11/20/12 by [id number]. Doctor to return call. 6 Verbal to answering service at 1911 on 11/20/12 by PINO. Doctor to return call. 7 @Verbal to DR BREWSTER by PINO at 1918 on 11/20/12. @Results read back accurately. @Repeated by: Selena Montgomery 11/20/121918 @Prev Result: 46.0 *P mmol/L 8 Because ethnic data is not always readily available, this report includes an eGFR for both -Americans and non- Americans. The National Kidney Disease Education Program (NKDEP) does not endorse the use of the MDRD equation for patients that are not between the ages of 18 and 70, are , have extremes of body size, muscle mass, or nutritional status, or are non- or non-. According to the National Kidney Foundation, irrespective of diagnosis, the stage of the disease is based on the level of kidney function: Stage Description GFR(mL/min/1.73 m(2)) 1 Kidney damage with normal or decreased GFR 90 2 Kidney damage with mild decrease in GFR 60-89 3 Moderate decrease in GFR 30-59 4 Severe decrease in GFR 15-29 5 Kidney failure <15 (or dialysis) 9 Because ethnic data is not always readily available, this report includes an eGFR for both -Americans and non- Americans. The National Kidney Disease Education Program (NKDEP) does not endorse the use of the MDRD equation for patients that are not between the ages of 18 and 70, are , have extremes of body size, muscle mass, or nutritional status, or are non- or non-. According to the National Kidney Foundation, irrespective of diagnosis, the stage of the disease is based on the level of kidney function: Stage Description GFR(mL/min/1.73 m(2)) 1 Kidney damage with normal or decreased GFR 90 2 Kidney damage with mild decrease in GFR 60-89 3 Moderate decrease in GFR 30-59 4 Severe decrease in GFR 15-29 5 Kidney failure <15 (or dialysis) Procedures Date Code Description Status 02/03/2016 16273 Open TX Of Femoral FX,Promimal End,Neck Internal Fixation Completed 02/03/2016 59816 Open TX Of Femoral FX,Promimal End,Neck Internal Fixation Completed 06/28/2004 66932 EKG, Interpretation Only Completed Encounters Type Date Location Provider Dx Diagnosis Office Visit 02/05/2018 [facility] Jules Varela G25.0 Essential tremor 1:45p Services Of Scott Gutierrez Z79.899 Other correction (current) drug therapy Office Visit 07/31/2017 1:45p [facility] Beatriz Dudley G25.0 Essential tremor Services Of Scott Varela M.D. G24.01 Drug induced subacute dyskinesia Office Visit 01/30/2017 1:30p [facility] Beatriz Lucio5.0 Essential tremor Services Of Scott Varela M.D. G24.01 Drug induced subacute dyskinesia Office Visit 10/11/2016 2:45p [facility] Beatriz Dudley G25.0 Essential tremor Services Of Scott Varela M.D. G24.01 Drug induced subacute dyskinesia Z79.899 Other correction (current) drug therapy Office Visit 08/23/2016 3:15p [facility] Beatriz Dudley G25.0 Essential tremor Services Of Scott Varela M.D. G24.01 Drug induced subacute dyskinesia Office Visit 05/17/2016 11:45a [facility] Beatriz Dudley G25.0 Essential tremor Services Of Scott Varela M.D. G25.1 Drug-induced tremor Office Visit 04/26/2016 1:00p Rheumatology Zsofia M10.9 Gout, unspecified Services Of JOHN Dugan Z79.899 Other correction (current) drug therapy Office Visit 02/06/2016 [facility] Azalea Pratt, J44.9 Chronic 1:26p Assoctong M.D. obstructive Hospitalists pulmonary disease, unspecified F31.75 Bipolar disord, in partial remis, most recent epsd depress R25.1 Tremor, unspecified S72.001A Fracture of unsp part of neck of right femur, init Office Visit 02/05/2016 [facility] Azalea Pratt, J44.9 Chronic 1:26p Assoctong M.D. obstructive Hospitalists pulmonary disease, unspecified F31.75 Bipolar disord, in partial remis, most recent epsd depress R25.1 Tremor, unspecified S72.001A Fracture of unsp part of neck of right femur, init Office Visit 02/04/2016 1:25p [facility] Azalea Pratt, F31.75 Bipolar Assoc,tong Gutierrez disord, in Hospitalists partial remis, most recent epsd depress J44.9 Chronic obstructive pulmonary disease, unspecified R25.1 Tremor, unspecified S72.001A Fracture of unsp part of neck of right femur, init Office Visit 02/03/2016 1:25p [facility] Azalea Pratt, F31.75 Bipolar Assoc,tong Gutierrez disord, in Hospitalists partial remis, most recent epsd depress J44.9 Chronic obstructive pulmonary disease, unspecified R25.1 Tremor, unspecified S72.001A Fracture of unsp part of neck of right femur, init Office Visit 02/02/2016 Orthopedic Sneha Castro, S72.041A Disp fx of base 7:00a Services Of M.DAdela of neck of right C.M.A. femur, init for clos fx Office Visit 02/02/2016 [facility] Andrea Reed J44.9 Chronic 1:24p Assoc,tong VENTURA M.D. obstructive Hospitalists pulmonary disease, unspecified F31.75 Bipolar disord, in partial remis, most recent epsd depress R25.1 Tremor, unspecified S72.001A Fracture of unsp part of neck of right femur, init Office Visit 11/16/2015 2:30p [facility] Jules Dudley G25.0 Essential tremor Services Of [facility] Brenda Varela Office Visit 10/26/2015 2:00p Rheumatology Bernardo Morrow, M10.9 Gout, unspecified Services [facility] ROPE CUTTER Z79.899 Other correction (current) drug therapy M79.643 Pain in unspecified hand M79.642 Pain in left hand M79.641 Pain in right hand Office Visit 09/21/2015 [facility] Jules Dudley G25.0 Essential tremor 10:45a Services Of Scott Varela M.D. Office Visit 08/06/2015 [facility] Jules Dudley G25.0 Essential tremor 10:15a Clinic Brenda Varela Office Visit 04/26/2015 Rheumatology Services Zsofia M10.9 Gout, 3:30p Of [facility] Cristhian, ROPE CUTTER unspecified Z79.899 Other correction (current) drug therapy J44.9 Chronic obstructive pulmonary disease, unspecified M54.5 Low back pain Office Visit 03/03/2015 3:00p [facility] Pauline Perdue, 333.1 Tremor Services Of [facility] DIVINITY PROFESSOR Essential & Other Forms Office Visit 12/30/2014 1:00p [facility] Pauline Perdue, 333.1 Tremor Services [facility] DIVINITY PROFESSOR Essential & Other Forms Office Visit 10/23/2014 2:00p Rheumatology Dale Esteves, 274.9 Gout Unspec Services Of Scott Gutierrez 715.16 Osteoarthrosis Localized Prim Lower Leg 496 COPD Airway Obstruction Chronic Not Class Elsewhere Office Visit 10/07/2014 10:00a [facility] Jules Dudley 333.1 Tremor Services Of Scott Varela M.D. Essential & Other Forms Office Visit 03/24/2014 2:00p Rheumatology Dale Esteves, 274.9 Gout Unspec Services Of Scott M.DAdela Office Visit 12/24/2013 2:00p Rheumatology Dale Esteves, 274.9 Gout Unspec Services Of Scott MAdelaDAdela Office Visit 09/26/2013 1:00p Rheumatology Dale Esteves, 274.9 Gout Unspec Services Of Network Control Operators Supervisor MAdelaDAdela Office Visit 05/29/2013 1:00p Rheumatology Dale Esteves, 274.9 Gout Unspec Services Of Network Control Operators Supervisor M.DAdela Office Visit 10/01/2012 3:00p Rheumatology Dale Esteves, 274.9 Gout Unspec Services Of Scott Gutierrez Plan of Treatment Future Appointment(s):08/13/2018 1:30 pm - Jules Varela M.D. 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
[2018-07-14 08:33] LABS: ABS Basophils 0 10^3/ul (0-0.2); ABS Eosinophils 0.1 10^3/ul (0-0.6); ABS Lymphocytes 0.6 10^3/ul (1.0-4.8); ABS Monocytes 0.5 10^3/ul (0-0.8); ABS Neutrophils 5.1 10^3/ul (1.5-7.7); ABS Nucleated RBC 0 10^3/ul; Eosinophil % 2.2 %; Hematocrit 43 % (42-52); Hemoglobin 14.1 g/dl (14.0-18.0); Lymphocyte % 9.2 %; Mean Corpuscular HGB Conc 33 g/dl (31-36); Mean Corpuscular Hemoglobin 29 pg (27-31); Mean Corpuscular Volume 87 fL (80-94); Mean Platelet Volume 6.9 fL (7.4-10.4); Nucleated Red Blood Cells % 0.1; Platelet Count 130 10^3/ul (150-450); Red Blood Count 4.94 10^6/ul (4.00-5.40); Red Cell Distribution Width 16 % (10.5-15); White Blood Count 6.4 10^3/ul (3.5-10.8)
[2018-07-14 08:48] LABS: ALT 11 U/L (7-52); AST 30 U/L (13-39); Albumin/Globulin Ratio 1.4 (1-3); Alkaline Phosphatase 54 U/L (34-104); Anion Gap 8 mmol/L (2-11); BUN/Creatinine Ratio 21.6 (8-20); Blood Urea Nitrogen 24 mg/dL (6-24); C Reactive Protein 83.81 mg/L (<8.01); CO2 Carbon Dioxide 35 mmol/L (22-32); Calcium 9.5 mg/dL (8.6-10.3); Chloride 95 mmol/L (101-111); EGFR Non-African American 65.1 (>60); Globulin 2.9 g/dL (2-4); Glucose 101 mg/dL (70-100); Potassium 3.5 mmol/L (3.5-5.0); Sodium 138 mmol/L (135-145); Total Protein 6.9 g/dL (6.4-8.9)
[2018-07-14 08:53] LABS: Urine Appearance Clear; Urine Bilirubin Negative (Negative); Urine Blood Negative (Negative); Urine Color Yellow; Urine Glucose Negative (Negative); Urine Ketones Negative (Negative); Urine Nitrite Negative (Negative); Urine Protein Negative (Negative); Urine Specific Gravity 1.018 (1.010-1.030); Urine Urobilinogen Negative (Negative)
[2018-07-14] MEDS ORDERED: NS 0.9% 1000 ML* 1,000 ML IV ONE (08:59)
--- NOTE | 2018-07-14 09:04 | ED ---
Neurological HPI - HPI Summary HPI Summary: The patient is a 73 y/o M arriving by ambulance to [facility] with a chief complaint of dizziness and generalized weakness starting this morning. Per nurse, the pt called EMS because he has been having frequent episodes of diarrhea starting yesterday, but when he woke up this morning, he felt weak and has right hip pain from a fall two years ago. The pain is currently rated 3/10 in severity. It is also reported that the patient has home health aides that visit him at home where he lives alone. He also has been continuously eating seafood chowder that was self-prepared five days ago. He denies fever, chills, CP, SOB, abd pain , nausea, and vomiting. He has not taken any antibiotics lately. He has hx of COPD and esophageal lung cancer, which warrants the need for O2. - History of Current Complaint Chief Complaint: EDWeakness Stated Complaint: WEAKNESS Time Seen by Provider: 07/14/18 08:12 Hx Obtained From: Patient Onset/Duration: Sudden Onset, Started hours ago - weakness started this morning , diarrhea started yesterday Timing: Sudden Onset Onset Severity: Moderate Current Severity: Moderate Neurological Deficit Location: Generalized Pain Intensity: 3 Pain Scale Used: 0-10 Numeric Character: Weak, Dizzy Aggravating: Nothing Alleviating: Nothing Associated Signs and Symptoms: Positive: Weakness, Dizziness, Diarrhea. Negative: Pain, Nausea/Vomiting, Fever, Chest Pain, Shortness of Breath - Additional Pertinent History Primary Care Physician: [id number] - Allergy/Home Medications Allergies/Adverse Reactions: Allergies Allergy/AdvReac Type Severity Reaction Status Date / Time Adhesive from Bandaids Allergy Itching Uncoded 07/14/18 08:07 PMH/Surg Hx/FS Hx/Imm Hx Endocrine/Hematology History: Denies: Hx Diabetes - states borderline, not on insulin, Hx Thyroid Disease Cardiovascular History: Denies: Hx Hypertension Respiratory History: Reports: Hx Asthma, Hx Chronic Obstructive Pulmonary Disease (COPD), Hx Sleep Apnea, Other Respiratory Problems/Disorders - stated "years ago at [facility]" he stopped breathing during an endoscopic proced History: Reports: Other Problems/Disorders - difficulty voiding after surgery Denies: Hx Renal Disease Musculoskeletal History: Reports: Hx Arthritis - neck Sensory History: Reports: Hx Contacts or Glasses, Hx Hearing Problem Denies: Hx Hearing Aid Opthamlomology History: Reports: Hx Contacts or Glasses Neurological History: Reports: Hx Seizures, Other Neuro Impairments/Disorders Psychiatric History: Reports: Hx Depression, Hx Bipolar Disorder - Cancer History Cancer Type, Location and Year: Bladder 2008, esophageal 6 months ago. Knee injections - Surgical History Surgery Procedure, Year, and Place: Years ago as a teenager. pt cant remember what he has had done Hx Anesthesia Reactions: Yes - states he stopped breathing during a past endoscopy about 3 years ago. has Infectious Disease History: No Infectious Disease History: Denies: Hx Hepatitis, Traveled Outside the [place] in Last 30 Days - Family History Known Family History: Negative: Hypertension, Diabetes - Social History Alcohol Use: None Hx Substance Use: No Substance Use Type: Reports: None Hx Tobacco Use: Yes Smoking Status (MU): Current Some Day Smoker Type: Cigarettes Have You Smoked in the Last Year: Yes Review of Systems Negative: Fever, Chills Negative: Erythema Negative: Sore Throat Negative: Chest Pain Negative: Shortness Of Breath, Cough Positive: Diarrhea - frequent episodes. Negative: Abdominal Pain, Vomiting, Nausea Negative: dysuria, hematuria Negative: Myalgia, Edema Negative: Rash Neurological: Other - dizziness Positive: Weakness - generalized All Other Systems Reviewed And Are Negative: Yes Physical Exam - Summary Physical Exam Summary: Constitutional: Well-developed, Well-nourished, Drowsiness appearing. (-) Distressed Skin: Warm, Dry HENT: Normocephalic; Atraumatic Eyes: Conjunctiva normal Neck: Musculoskeletal ROM normal neck. (-) JVD, (-) Stridor, (-) Tracheal deviation Cardio: Rhythm regular, rate tachycardic, Heart sounds normal; Intact distal pulses; The pedal pulses are 2+ and symmetric. Radial pulses are 2+ and symmetric. (-) Murmur Pulmonary/Chest wall: Effort normal. (-) Respiratory distress, (+) Slight expiratory wheeze, (-) Rales Abd: Soft, (-) epigastric tenderness, (-) Distension, (-) Guarding, (-) Rebound Musculoskeletal: (-) Edema Lymph: (-) Cervical adenopathy Neuro: Drowsiness appearing, disoriented Psych: Mood and affect Normal Triage Information Reviewed: Yes Vital Signs On Initial Exam: Initial Vitals Temp Pulse Resp BP Pulse Ox 98.7 F 99 18 114/70 95 07/14/18 07:55 07/14/18 07:55 07/14/18 07:55 07/14/18 07:55 07/14/18 07:55 Vital Signs Reviewed: Yes Diagnostics - Vital Signs Vital Signs Temp Pulse Resp BP Pulse Ox 07/14/18 08:29 98 32 115/59 92 07/14/18 08:01 100 92 07/14/18 07:59 99 114/70 92 07/14/18 07:55 98.7 F 99 18 114/70 95 - Laboratory Lab Results: Lab Results 07/14/18 07/14/18 07/14/18 Range/Units 08:22 08:22 08:22 WBC 6.4 (3.5-10.8) 10^3/ul RBC 4.94 (4.00-5.40) 10^6/ul Hgb 14.1 (14.0-18.0) g/dl Hct 43 (42-52) % MCV 87 (80-94) fL MCH 29 (27-31) pg MCHC 33 (31-36) g/dl RDW 16 H (10.5-15) % Plt Count 130 L (150-450) 10^3/ul MPV 6.9 L (7.4-10.4) fL Neut % (Auto) 79.8 % Lymph % (Auto) 9.2 % [place] % (Auto) 8.5 % Eos % (Auto) 2.2 % Baso % (Auto) 0.3 % Absolute Neuts (auto) 5.1 (1.5-7.7) 10^3/ul Absolute Lymphs (auto) 0.6 L (1.0-4.8) 10^3/ul Absolute Monos (auto) 0.5 (0-0.8) 10^3/ul Absolute Eos (auto) 0.1 (0-0.6) 10^3/ul Absolute Basos (auto) 0 (0-0.2) 10^3/ul Absolute Nucleated RBC 0 10^3/ul Nucleated RBC % 0.1 Sodium 138 (135-145) mmol/L Potassium 3.5 (3.5-5.0) mmol/L Chloride 95 L (101-111) mmol/L Carbon Dioxide 35 H (22-32) mmol/L Anion Gap 8 (2-11) mmol/L BUN 24 (6-24) mg/dL Creatinine 1.11 (0.67-1.17) mg/dL Est GFR ( Amer) 78.8 (>60) Est GFR (Non-Af Amer) 65.1 (>60) BUN/Creatinine Ratio 21.6 H (8-20) Glucose 101 H (70-100) mg/dL Lactic Acid 1.4 (0.5-2.0) mmol/L Calcium 9.5 (8.6-10.3) mg/dL Total Bilirubin 0.50 (0.2-1.0) mg/dL AST 30 (13-39) U/L ALT 11 (7-52) U/L Alkaline Phosphatase 54 (34-104) U/L C-Reactive Protein 83.81 H (<8.01) mg/L Total Protein 6.9 (6.4-8.9) g/dL Albumin 4.0 (3.2-5.2) g/dL Globulin 2.9 (2-4) g/dL Albumin/Globulin Ratio 1.4 (1-3) Lipase < 10 L (11.0-82.0) U/L Urine Color Urine Appearance Urine pH (5-9) Ur Specific Marshall (1.010-1.030) Urine Protein (Negative) Urine Ketones (Negative) Urine Blood (Negative) Urine Nitrate (Negative) Urine Bilirubin (Negative) Urine Urobilinogen (Negative) Ur Leukocyte Esterase (Negative) Urine Glucose (Negative) 07/14/18 Range/Units 08:43 WBC (3.5-10.8) 10^3/ul RBC (4.00-5.40) 10^6/ul Hgb (14.0-18.0) g/dl Hct (42-52) % MCV (80-94) fL MCH (27-31) pg MCHC (31-36) g/dl RDW (10.5-15) % Plt Count (150-450) 10^3/ul MPV (7.4-10.4) fL Neut % (Auto) % Lymph % (Auto) % [place] % (Auto) % Eos % (Auto) % Baso % (Auto) % Absolute Neuts (auto) (1.5-7.7) 10^3/ul Absolute Lymphs (auto) (1.0-4.8) 10^3/ul Absolute Monos (auto) (0-0.8) 10^3/ul Absolute Eos (auto) (0-0.6) 10^3/ul Absolute Basos (auto) (0-0.2) 10^3/ul Absolute Nucleated RBC 10^3/ul Nucleated RBC % Sodium (135-145) mmol/L Potassium (3.5-5.0) mmol/L Chloride (101-111) mmol/L Carbon Dioxide (22-32) mmol/L Anion Gap (2-11) mmol/L BUN (6-24) mg/dL Creatinine (0.67-1.17) mg/dL Est GFR ( Amer) (>60) Est GFR (Non-Af Amer) (>60) BUN/Creatinine Ratio (8-20) Glucose (70-100) mg/dL Lactic Acid (0.5-2.0) mmol/L Calcium (8.6-10.3) mg/dL Total Bilirubin (0.2-1.0) mg/dL AST (13-39) U/L ALT (7-52) U/L Alkaline Phosphatase (34-104) U/L C-Reactive Protein (<8.01) mg/L Total Protein (6.4-8.9) g/dL Albumin (3.2-5.2) g/dL Globulin (2-4) g/dL Albumin/Globulin Ratio (1-3) Lipase (11.0-82.0) U/L Urine Color Yellow Urine Appearance Clear Urine pH 5.0 (5-9) Ur Specific Marshall 1.018 (1.010-1.030) Urine Protein Negative (Negative) Urine Ketones Negative (Negative) Urine Blood Negative (Negative) Urine Nitrate Negative (Negative) Urine Bilirubin Negative (Negative) Urine Urobilinogen Negative (Negative) Ur Leukocyte Esterase Negative (Negative) Urine Glucose Negative (Negative) Result Diagrams: 07/14/18 08:22 07/14/18 08:22 Lab Statement: Any lab studies that have been ordered have been reviewed, and results considered in the medical decision making process. Course/Dx - Course Course Of Treatment: The patient is a 73 y/o M arriving by ambulance to [facility] with a chief complaint of dizziness and generalized weakness starting this morning. Per nurse, the pt called EMS because he has been having frequent episodes of diarrhea starting yesterday, but when he woke up this morning, he felt weak and has right hip pain from a fall two years ago. It is also reported that the patient has home health aides that visit him at home where he lives alone. He has been continuously eating seafood chowder that was self-prepared five days ago. He denies fever, chills, CP, SOB, abd pain, nausea, and vomiting. No recent abx. Hx of COPD and esophageal lung cancer warrants need for O2. Upon physical exam, the patient exhibits a drowsy appearance, tachycardia, slight expiratory wheezing, and disorientation to date. In the ED course, the patient was administered Ns. Blood work reveals elevated ABG pCO2, base excess, and C-reactive protein, and decreased lipase and ABG pO2. UA is normal. I consulted with Dr. York, hospitalist, who accepts the patient for admission at 0930. He is diagnosed with delirium, dehydration, and diarrhea. He agrees with the plan and need for admission. - Diagnoses Provider Diagnoses: Delirium, Dehydration, Diarrhea - Physician Notifications Discussed Care Of Patient With: Bhavya York - hospitalist Time Discussed With Above Provider: 09:30 Instructed by Provider To: Admit As Observation - I consulted with Dr. York, who accepts the patient for admission. Discharge - Sign-Out/Discharge Documenting (check all that apply): Patient Departure - Patient will be admitted to [facility] [place] for further care by Dr. York. - Discharge Plan Condition: Stable Disposition: ADMITTED TO [facility] Referrals: Scott Salinas MD [Primary Care Provider] - - Billing Disposition and Condition Condition: STABLE Disposition: Admitted to [facility] - Attestation Statements Document Initiated by Deejay: Yes Documenting Scribe: Laura Simpson Provider For Whom Deejay is Documenting (Include Credential): Dr. Mark Ernst MD Scribe Attestation: Laura Nguyen scribed for Dr. Mark Ernst MD on 07/14/18 at 1021. Scribe Documentation Reviewed: Yes Provider Attestation: The documentation as recorded by the Laura lechuga accurately reflects the service I personally performed and the decisions made by me, Dr. Mark Ernst MD Status of Scribe Document: Viewed
[2018-07-14] MEDS ORDERED: Levalbuterol HFA INHALER* 1 PUFF MDI INH PRN (12:16)
[2018-07-14] MEDS ORDERED: Acetaminophen TAB* 325 MG PO PRN (12:16)
[2018-07-14] MEDS ORDERED: Loperamide CAP* 2 MG PO PRN (12:16)
[2018-07-14] MEDS: NS 0.9% 1000 ML* 1,000 ML IV SCH ×2 (12:46→19:17)
[2018-07-14] MEDS: Potassium Chlor TAB* 10 MEQ TAB.ER PO SCH ×3 (13:03→20:32)
[2018-07-14] MEDS: Albuterol 2.5 MG/3 ML NEB.SOL* (0.083%) INH SCH ×2 (14:21→19:34)
--- NOTE | 2018-07-14 15:24 | HP ---
CC: Dr. Salinas* [facility] MEDICINE HISTORY AND PHYSICAL: DATE OF ADMISSION: 07/14/18 PRIMARY CARE PHYSICIAN: Dr. Salinas. ATTENDING PHYSICIAN: Dr. Bhavya York* (dictation provided by Shraddha Banegas NP) . CHIEF COMPLAINT: Weakness and diarrhea. HISTORY OF PRESENT ILLNESS: Mr. Martinez is a 73-year-old male with a past medical history of COPD, on 2 to 3 L nasal cannula at home, as well as a chronic intentional tremor, obstructive sleep apnea, and bladder cancer, status post TURP, who presents today to the hospital with concern for an episode of diarrhea and weakness. Mr. Martinez reports that he is simply feeling very tired today. He does confirm that he had an episode of diarrhea last night. He is unable to provide much more in the way of recent medical illness, but does indicate that he has been otherwise unwell. The patient has aides who are with him during the day. Today, they came to check on him and found him sitting in the chair in his own stool and very weak. There is report from the family that the patient had been eating seafood chowder that had been first prepared on and they are concerned perhaps that he had food poisoning. The patient today denies any complaint other than feeling tired. He denies chest pain, shortness of breath, nausea, vomiting. He did have an episode of diarrhea , but has had none since arrival to the emergency room. He has no abdominal pain. In the emergency room, the patient had no leukocytosis. He has no fever. His vitals are otherwise stable. He is on his home 3 L nasal cannula. Emergency department staff spoke with the patient's daughter, who further indicated that the patient has been needing increasing help with ADLs at home and that the family is concerned that he needs placement in a nursing facility or perhaps additional services at home if that could be arranged. PAST MEDICAL HISTORY: 1. COPD, on 2 to 3 L nasal cannula. 2. Obstructive sleep apnea with CPAP. 3. History of urinary retention, 2016. 4. History of right hip fracture, 2016. 5. Chronic intentional tremor. 6. Bladder cancer, status post TURP. 7. Gout. 8. BPH. 9. Depression. 10. Glaucoma. MEDICATIONS OUTPATIENT: The medication list was gone over with the patient only and he seems to be clear about which medications he takes, although it would be helpful if this could be reviewed and confirmed with the primary care physician's medication list, but as of now it is: 1. Gabapentin 600 mg p.o. t.i.d. 2. Fluticasone/salmeterol 500/50 one puff inhaled b.i.d. 3. Escitalopram 20 mg p.o. daily. 4. Docusate 200 mg p.o. b.i.d. 5. Divalproex ER 2000 mg p.o. at bedtime. 6. Voltaren 1% gel 1 application topically b.i.d. p.r.n. 7. Clarinex 5 mg p.o. daily. 8. Multivitamin with minerals 1 tab p.o. daily. 9. Singulair 10 mg p.o. q.a.m. 10. Metolazone 2.5 mg p.o. daily. 11. Latuda 40 mg p.o. at bedtime. 12. Loperamide 2 mg p.o. q.4 hours p.r.n. 13. Levalbuterol 2 puffs inhaled q.4 hours p.r.n. 14. Xalatan 1 drop left eye daily. 15. Senna 2 tabs p.o. at bedtime. 16. Primidone 150 mg p.o. b.i.d. 17. Potassium chloride 10 mEq p.o. q.i.d. 18. MiraLAX 17 g p.o. daily. 19. Omeprazole 40 mg p.o. b.i.d. 20. Dalhart-3 fatty acids 1 cap p.o. t.i.d. 21. Nicotine lozenge 4 mg q.2 hours p.r.n. 22. Prednisone 5 mg p.o. daily. 23. Oxycodone with acetaminophen 5/325 one to two tabs p.o. q.4 hours p.r.n. 24. Clonazepam 0.25 mg p.o. at bedtime. 25. Zyflo 1200 mg p.o. b.i.d. 26. Torsemide 20 mg p.o. daily. 27. Tamsulosin 0.4 mg p.o. at bedtime. 28. Sucralfate 1 g p.o. 3 times a day. 29. Allopurinol 300 mg p.o. daily. 30. Albuterol nebulizer t.i.d. 31. Tudorza Pressair 400 mcg inhaled b.i.d. 32. Tylenol 650 mg p.o. q.6 hours p.r.n. 33. Clotrimazole 1 application topically weekly. 34. Alphagan P 0.15% one drop both eyes b.i.d. ALLERGIES: None noted. FAMILY HISTORY: Unobtainable. SOCIAL HISTORY: No report of alcohol or drug use. Tobacco history is present, uncertain for how long he smoked. REVIEW OF SYSTEMS: A 14-point review of systems was completed with Mr. Martinez and all those not mentioned above were negative. PHYSICAL EXAMINATION GENERAL: Mr. Martniez is lying in the bed. He arouses to my voice, but it takes some cajoling to get him to open his eyes. He states that he is just very tired. VITAL SIGNS: Temperature 98.3, pulse rate 80, respiratory rate 20, O2 saturation 94% on 3 L nasal cannula, blood pressure 110/62. LUNGS: Clear to auscultation bilaterally with no accessory muscle use and good aeration. HEART: S1, S2. No murmur, rub, or gallop and regular. ABDOMEN: Soft, nontender with bowel sounds positive x4. EXTREMITIES: No cyanosis or edema. NEURO: Again, drowsy but oriented x3. He moves all extremities equally. He does have an intentional tremor as documented. There is no focal weakness or sensory loss. Extraocular movements are intact. SKIN: Intact. DIAGNOSTIC STUDIES/LAB DATA: WBC 6.4, hemoglobin 14.1, hematocrit 43, platelet count 130. PH 7.40, pCO2 62, pO2 71, bicarbonate 33.4. Sodium 138, potassium 3.5, chloride 95, serum bicarbonate 35, BUN 24, creatinine 1.11, glucose 101. CRP 83.81. Urine shows no evidence of infection. ASSESSMENT AND PLAN: Mr. Martinez is a 73-year-old male with a past medical history of chronic obstructive pulmonary disease with chronic hypoxic respiratory failure, on 2 to 3 L nasal cannula routinely, as well as obstructive sleep apnea with CPAP, who presents today to the hospital with concern for diarrhea x1 and weakness with family concern for inability to continue care for self at the current level of care. Our plans are for observation in the hospital for the followin. Diarrhea. The patient has had no further diarrhea since admission. He has no leukocytosis, no fever. We will watch closely and continue any further workup as needed, but at this point monitoring only. He does not appear dehydrated. 2. Weakness. The patient is certainly tired today. It is unclear what might be driving this, but he normally is able to ambulate with a walker. We will have him evaluated by Physical and Occupational Therapy to determine if he continues to be safe for independent living. 3. Chronic obstructive pulmonary disease, on 2 to 3 L nasal cannula, with chronic hypoxic respiratory failure. No evidence of acute exacerbation. Plan to continue home medications. 4. Anxiety, depression. Continue home medications. 5. Question congestive heart failure. The patient has some mild lower extremity edema. Plan to continue his home diuretics. I do not see a previous echocardiogram, but I see no evidence of acute exacerbation. 6. Code status is full code. TIME SPENT: Approximately 60 minutes was spent on the admission of this patient , more than half the time spent with the patient at the bedside reviewing the events leading up to this hospitalization, performing the physical examination, and reviewing the plan of care. SHRADDHA BANEGAS NP [id number]/[facility] #: [id number] [facility]
[2018-07-14] MEDS: Sucralfate TAB* 1 GM PO SCH (18:02)
[2018-07-14] MEDS: Lurasidone(*) 40 MG TAB PO SCH (18:08)
[2018-07-14] MEDS: Mometasone/Formoter 200/5 MDI INH SCH (19:34)
[2018-07-14] MEDS: Aclidinium POWDER MDI(NF) INH SCH (19:51)
[2018-07-14] MEDS: Primidone TAB(*) 50 MG PO SCH (20:24)
[2018-07-14] MEDS: Divalproex ER TAB(*) 500 MG PO SCH (20:24)
[2018-07-14] MEDS: Omeprazole CAP (NF) 20 MG CAP.DR PO SCH (20:25)
[2018-07-14] MEDS: Senna TAB PO SCH (20:26)
[2018-07-14] MEDS: Tamsulosin CAP* 0.4 MG PO SCH (20:26)
[2018-07-14] MEDS: Acetaminophen TAB* 325 MG PO PRN (20:26)
[2018-07-14] MEDS: Docusate CAP* 100 MG PO SCH (20:27)
[2018-07-14] MEDS: clonazePAM TAB(*) 0.5 MG PO SCH (20:27)
[2018-07-14] MEDS: Latanoprost 0.005%* 2.5 ml BTL LEFT EYE SCH (20:28)
[2018-07-15] MEDS: NS 0.9% 1000 ML* 1,000 ML IV SCH ×2 (02:15→09:33)
[2018-07-15] MEDS: Omeprazole CAP (NF) 20 MG CAP.DR PO SCH ×2 (05:23→19:44)
[2018-07-15] MEDS: Sucralfate TAB* 1 GM PO SCH ×3 (05:23→17:12)
[2018-07-15] MEDS: Montelukast Sodium TAB* 10 MG PO SCH (07:31)
[2018-07-15] MEDS: Torsemide TAB* 20 MG PO SCH (07:31)
[2018-07-15] MEDS: Multivitamins/Minerals TAB PO SCH (07:31)
[2018-07-15] MEDS: predniSONE TAB* 5 MG PO SCH (07:32)
[2018-07-15] MEDS: Metolazone TAB* 5 MG PO SCH (07:32)
[2018-07-15] MEDS: CMCS - Escitalopram (NF) 10 MG TAB PO SCH (07:32)
[2018-07-15] MEDS: Potassium Chlor TAB* 20 MEQ TAB.ER PO SCH (07:33)
[2018-07-15] MEDS: Acetaminophen TAB* 325 MG PO PRN ×2 (07:33→15:37)
[2018-07-15] MEDS: Primidone TAB(*) 50 MG PO SCH ×2 (07:34→19:46)
[2018-07-15] MEDS: Polyethylene Glycol 3350* 17 GM PACKET PO SCH (07:34)
[2018-07-15] MEDS: Aclidinium POWDER MDI(NF) INH SCH ×2 (07:35→19:28)
[2018-07-15] MEDS: Docusate CAP* 100 MG PO SCH ×2 (07:35→19:44)
[2018-07-15] MEDS: Allopurinol TAB* 300 MG PO SCH (07:43)
[2018-07-15] MEDS: Mometasone/Formoter 200/5 MDI INH SCH ×2 (07:48→19:18)
[2018-07-15] MEDS: Albuterol 2.5 MG/3 ML NEB.SOL* (0.083%) INH SCH ×3 (07:49→19:17)
--- NOTE | 2018-07-15 09:24 | PN ---
Subjective Date of Service: 07/15/18 Interval History: Mr. Martinez is a 73 yo male, admitted yesterday with concern for diarrhea and weakness. He endorses stomach pain this morning but was able to eat his breakfast, stating "I was hungry." Denies fever/chills, CP. States his chest "feels congested." He is on his baseline O2 requirement, which is 3L. He is concerned that his chest congestion is going to turn into pneumonia. Reports feeling shaky when he is up OOB. Reports diarrhea (unsure how much), denies blood in stools. Family History: Unchanged from Admission Social History: Unchanged from Admission Past Medical History: Unchanged from Admission Objective Active Medications: Acetaminophen (Tylenol Tab*) 650 mg PO Q6H PRN PRN Reason: pain/fever Last Admin: 07/15/18 07:33 Dose: 650 mg Acetaminophen (Tylenol Tab*) 650 mg PO Q6H PRN PRN Reason: FEVER > 101 Aclidinium Alma (Tudorza Press Mdi(Nf)) 1 puff INH BID BRADY Last Admin: 07/15/18 07:35 Dose: Not Given Albuterol (Ventolin 2.5 Mg/3 Ml Neb.Trina*) 2.5 mg INH TID BRADY Last Admin: 07/15/18 07:49 Dose: 2.5 mg Allopurinol (Zyloprim Tab*) 300 mg PO DAILY [facility] Last Admin: 07/15/18 07:43 Dose: 300 mg Clonazepam (Klonopin Tab(*)) 0.25 mg PO BEDTIME BRADY Last Admin: 07/14/18 20:27 Dose: 0.25 mg Divalproex Sodium (Depakote Er Tab(*)) 2,000 mg PO BEDTIME BRADY Last Admin: 07/14/18 20:24 Dose: 2,000 mg Docusate Sodium (Colace Cap*) 200 mg PO BID BRADY Last Admin: 07/15/18 07:35 Dose: Not Given Escitalopram Oxalate (Lexapro (Nf)) 20 mg PO DAILY [facility] Last Admin: 07/15/18 07:32 Dose: 20 mg Sodium Chloride (Ns 0.9% 1000 Ml*) 1,000 mls @ 150 mls/hr IV PER RATE BRADY Last Admin: 07/15/18 02:15 Dose: 150 mls/hr Latanoprost (Xalatan 0.005%*) 1 drop LEFT EYE 2100 [facility] Last Admin: 07/14/18 20:28 Dose: 1 drop Levalbuterol HCl (Xopenex Hfa Inhaler*) 2 puff INH Q4H PRN PRN Reason: SHORTNESS OF BREATH Loperamide HCl (Imodium Cap*) 2 mg PO Q4H PRN PRN Reason: CONSTIPATION Lurasidone HCl (Latuda) 40 mg PO 1700 [facility] Last Admin: 07/14/18 18:08 Dose: Not Given Metolazone (Zaroxolyn Tab*) 2.5 mg PO DAILY [facility] Last Admin: 07/15/18 07:32 Dose: 2.5 mg Mometasone Furoate/Formoterol Fumar (Dulera 200/5 Mdi*) 2 puff INH BID [facility] Last Admin: 07/15/18 07:48 Dose: 2 puff Montelukast Sodium (Singulair Tab*) 10 mg PO QAM [facility] Last Admin: 07/15/18 07:31 Dose: 10 mg Multivitamins/Minerals (Theragran/Minerals Tab*) 1 tab PO DAILY [facility] Last Admin: 07/15/18 07:31 Dose: 1 tab Omeprazole (Prilosec Cap*) 40 mg PO 0700,2100 [facility] Last Admin: 07/15/18 05:23 Dose: 40 mg Polyethylene Glycol/Electrolytes (Miralax*) 17 gm PO DAILY [facility] Last Admin: 07/15/18 07:34 Dose: Not Given Potassium Chloride (Klor Con Er Tab*) 10 meq PO 1200,1700,2100 [facility] Last Admin: 07/14/18 20:32 Dose: 10 meq Potassium Chloride (Klor Con Er Tab*) 20 meq PO DAILY [facility] Last Admin: 07/15/18 07:33 Dose: 20 meq Prednisone (Deltasone Tab*) 5 mg PO DAILY [facility] Last Admin: 07/15/18 07:32 Dose: 5 mg Primidone (Mysoline Tab(*)) 150 mg PO BID [facility] Last Admin: 07/15/18 07:34 Dose: 150 mg Senna (Senokot Tab*) 2 tab PO BEDTIME [facility] Last Admin: 07/14/18 20:26 Dose: Not Given Sucralfate (Carafate*) 1 gm PO 0700,1100,1700 [facility] Last Admin: 07/15/18 05:23 Dose: 1 gm Tamsulosin HCl (Flomax Cap*) 0.4 mg PO BEDTIME [facility] Last Admin: 07/14/18 20:26 Dose: 0.4 mg Torsemide (Demadex*) 20 mg PO DAILY [facility] Last Admin: 07/15/18 07:31 Dose: 20 mg Vital Signs - 8 hr 07/15/18 07/15/18 07/15/18 02:39 07:44 07:50 Temperature 98.3 F 97.3 F Pulse Rate 71 90 66 Respiratory 20 18 18 Rate Blood Pressure 119/87 107/58 (mmHg) O2 Sat by Pulse 98 97 98 Oximetry Oxygen Devices in Use Now: Nasal Cannula Appearance: 73 yo male, lying in bed, in NAD, resting comfortably at 60 degree HOB Eyes: No Scleral Icterus, PERRLA Ears/Nose/Mouth/Throat: Clear Oropharnyx, Mucous Membranes Moist Neck: NL Appearance and Movements; NL JVP Respiratory: Symmetrical Chest Expansion and Respiratory Effort, - - good aeration through all lung peter but with scattered rhonchi Cardiovascular: NL Sounds; No Murmurs; No JVD, RRR Abdominal: NL Sounds; No Tenderness; No Distention Extremities: No Clubbing, Cyanosis, - - trace BLE Skin: No Rash or Ulcers Neurological: Alert and Oriented x 3, NL Muscle Strength and Tone Lines/Tubes/Other Access: Clean, Dry and Intact Peripheral IV Nutrition: Taking PO's Result Diagrams: 07/14/18 08:22 07/14/18 08:22 Additional Lab and Data: Lab Results 07/14/18 07/14/18 07/14/18 Range/Units 08:22 08:22 08:22 WBC 6.4 (3.5-10.8) 10^3/ul RBC 4.94 (4.00-5.40) 10^6/ul Hgb 14.1 (14.0-18.0) g/dl Hct 43 (42-52) % MCV 87 (80-94) fL MCH 29 (27-31) pg MCHC 33 (31-36) g/dl RDW 16 H (10.5-15) % Plt Count 130 L (150-450) 10^3/ul MPV 6.9 L (7.4-10.4) fL Neut % (Auto) 79.8 % Lymph % (Auto) 9.2 % [place] % (Auto) 8.5 % Eos % (Auto) 2.2 % Baso % (Auto) 0.3 % Absolute Neuts (auto) 5.1 (1.5-7.7) 10^3/ul Absolute Lymphs (auto) 0.6 L (1.0-4.8) 10^3/ul Absolute Monos (auto) 0.5 (0-0.8) 10^3/ul Absolute Eos (auto) 0.1 (0-0.6) 10^3/ul Absolute Basos (auto) 0 (0-0.2) 10^3/ul Absolute Nucleated RBC 0 10^3/ul Nucleated RBC % 0.1 Sodium 138 (135-145) mmol/L Potassium 3.5 (3.5-5.0) mmol/L Chloride 95 L (101-111) mmol/L Carbon Dioxide 35 H (22-32) mmol/L Anion Gap 8 (2-11) mmol/L BUN 24 (6-24) mg/dL Creatinine 1.11 (0.67-1.17) mg/dL Est GFR ( Amer) 78.8 (>60) Est GFR (Non-Af Amer) 65.1 (>60) BUN/Creatinine Ratio 21.6 H (8-20) Glucose 101 H (70-100) mg/dL Lactic Acid 1.4 (0.5-2.0) mmol/L Calcium 9.5 (8.6-10.3) mg/dL Total Bilirubin 0.50 (0.2-1.0) mg/dL AST 30 (13-39) U/L ALT 11 (7-52) U/L Alkaline Phosphatase 54 (34-104) U/L C-Reactive Protein 83.81 H (<8.01) mg/L Total Protein 6.9 (6.4-8.9) g/dL Albumin 4.0 (3.2-5.2) g/dL Globulin 2.9 (2-4) g/dL Albumin/Globulin Ratio 1.4 (1-3) Lipase < 10 L (11.0-82.0) U/L Urine Color Urine Appearance Urine pH (5-9) Ur Specific [place] (1.010-1.030) Urine Protein (Negative) Urine Ketones (Negative) Urine Blood (Negative) Urine Nitrate (Negative) Urine Bilirubin (Negative) Urine Urobilinogen (Negative) Ur Leukocyte Esterase (Negative) Urine Glucose (Negative) 07/14/18 Range/Units 08:43 WBC (3.5-10.8) 10^3/ul RBC (4.00-5.40) 10^6/ul Hgb (14.0-18.0) g/dl Hct (42-52) % MCV (80-94) fL MCH (27-31) pg MCHC (31-36) g/dl RDW (10.5-15) % Plt Count (150-450) 10^3/ul MPV (7.4-10.4) fL Neut % (Auto) % Lymph % (Auto) % [place] % (Auto) % Eos % (Auto) % Baso % (Auto) % Absolute Neuts (auto) (1.5-7.7) 10^3/ul Absolute Lymphs (auto) (1.0-4.8) 10^3/ul Absolute Monos (auto) (0-0.8) 10^3/ul Absolute Eos (auto) (0-0.6) 10^3/ul Absolute Basos (auto) (0-0.2) 10^3/ul Absolute Nucleated RBC 10^3/ul Nucleated RBC % Sodium (135-145) mmol/L Potassium (3.5-5.0) mmol/L Chloride (101-111) mmol/L Carbon Dioxide (22-32) mmol/L Anion Gap (2-11) mmol/L BUN (6-24) mg/dL Creatinine (0.67-1.17) mg/dL Est GFR ( Amer) (>60) Est GFR (Non-Af Amer) (>60) BUN/Creatinine Ratio (8-20) Glucose (70-100) mg/dL Lactic Acid (0.5-2.0) mmol/L Calcium (8.6-10.3) mg/dL Total Bilirubin (0.2-1.0) mg/dL AST (13-39) U/L ALT (7-52) U/L Alkaline Phosphatase (34-104) U/L C-Reactive Protein (<8.01) mg/L Total Protein (6.4-8.9) g/dL Albumin (3.2-5.2) g/dL Globulin (2-4) g/dL Albumin/Globulin Ratio (1-3) Lipase (11.0-82.0) U/L Urine Color Yellow Urine Appearance Clear Urine pH 5.0 (5-9) Ur Specific [place] 1.018 (1.010-1.030) Urine Protein Negative (Negative) Urine Ketones Negative (Negative) Urine Blood Negative (Negative) Urine Nitrate Negative (Negative) Urine Bilirubin Negative (Negative) Urine Urobilinogen Negative (Negative) Ur Leukocyte Esterase Negative (Negative) Urine Glucose Negative (Negative) Microbiology and Other Data: Microbiology 07/14/18 08:21 Aerobic Blood Culture - Preliminary Blood Venous No Growth Day 1 Anaerobic Blood Culture - Preliminary No Growth Day 1 07/14/18 08:21 Aerobic Blood Culture - Preliminary Blood Venous No Growth Day 1 Anaerobic Blood Culture - Preliminary No Growth Day 1 07/14/18 17:00 Stool Gross Appearance - Final Stool C. difficile DNA Amplification - Final 027 Presumptive NEGATIVE Toxigenic C.diff NEGATIVE Assess/Plan/Problems-Billing Assessment: Mr. Martinez is a 73-year-old male with a PMH of COPD and chronic hypoxic respiratory failure (on 2 to 3 L nasal cannula routinely), MICKEY with CPAP, urinary retention, chronic intentional tremor, bladder cancer s/p TURP, gout, BPH, depression, and glaucoma who was admitted with concern for diarrhea x1 and weakness with family concern for inability to continue care for self at the current level of care. - Patient Problems (1) Diarrhea Code(s): R19.7 - DIARRHEA, UNSPECIFIED Comment: Still with c/o loose stools in the presence of diffuse abdominal pain Suspect gastroenteritis Stool studies pending, negative C. diff Continue supportive care Tolerating PO intake, will discontinue IVF (2) Weakness Code(s): R53.1 - WEAKNESS Comment: Lives independently with aides but now with concern for increased weakness PT/OT evals pending May require QUAN upon discharge (3) Chronic hypoxemic respiratory failure Comment: Requiring 2 to 3L nc at baseline He is on his baseline O2 requirement. (4) COPD (chronic obstructive pulmonary disease) Code(s): J44.9 - CHRONIC OBSTRUCTIVE PULMONARY DISEASE, UNSPECIFIED Comment: Oxygen dependent x 10 years On prednisone chronically at 5 mg Does not appear to be in acute exacerbation but states that his chest feels congested Obtain CXR, start guaifenesin ER Continue Tudorza Pressair and Dulera Non-toxic appearing with no increased O2 demands Start incentive spirometry (5) Leg edema Code(s): R60.0 - LOCALIZED EDEMA Comment: Trace BLE edema, suspect secondary to HF Does not appear to be in acute CHF exacerbation Continue chronic Zaroxolyn and Demadex (6) Tremor Code(s): R25.1 - TREMOR, UNSPECIFIED Comment: Chronic, possibly benign familial Continue primidone, depakote (7) DVT prophylaxis Comment: lovenox Status and Disposition: OBV admit. Evaluate for QUAN needs. Disposition will depend on PT/OT needs, home vs QUAN. Attending: Clint Tripp
[2018-07-15] MEDS: guaiFENesin ER TAB 600 MG PO SCH ×2 (11:47→19:43)
[2018-07-15] MEDS: Potassium Chlor TAB* 10 MEQ TAB.ER PO SCH ×3 (11:47→19:48)
[2018-07-15] MEDS: Lurasidone(*) 40 MG TAB PO SCH (17:12)
[2018-07-15] MEDS: Enoxaparin(*) 40 MG/0.4 ML SYR SUBCUT SCH (17:13)
[2018-07-15] MEDS: Divalproex ER TAB(*) 500 MG PO SCH (19:39)
[2018-07-15] MEDS: clonazePAM TAB(*) 0.5 MG PO SCH (19:41)
[2018-07-15] MEDS: Senna TAB PO SCH (19:43)
[2018-07-15] MEDS: Tamsulosin CAP* 0.4 MG PO SCH (19:46)
[2018-07-15] MEDS: Latanoprost 0.005%* 2.5 ml BTL LEFT EYE SCH (19:49)
[2018-07-16] MEDS: Acetaminophen TAB* 325 MG PO PRN (00:47)
[2018-07-16] MEDS: Omeprazole CAP (NF) 20 MG CAP.DR PO SCH ×2 (06:04→20:17)
[2018-07-16] MEDS: Sucralfate TAB* 1 GM PO SCH ×3 (06:04→16:20)
[2018-07-16 06:06] LABS: ABS Basophils 0 10^3/ul (0-0.2); ABS Eosinophils 0.3 10^3/ul (0-0.6); ABS Lymphocytes 1.1 10^3/ul (1.0-4.8); ABS Monocytes 0.5 10^3/ul (0-0.8); ABS Neutrophils 2.5 10^3/ul (1.5-7.7); ABS Nucleated RBC 0 10^3/ul; Eosinophil % 6.2 %; Hematocrit 36 % (42-52); Hemoglobin 11.8 g/dl (14.0-18.0); Lymphocyte % 25.5 %; Mean Corpuscular HGB Conc 33 g/dl (31-36); Mean Corpuscular Hemoglobin 28 pg (27-31); Mean Corpuscular Volume 86 fL (80-94); Mean Platelet Volume 6.8 fL (7.4-10.4); Nucleated Red Blood Cells % 0.1; Platelet Count 112 10^3/ul (150-450); Red Cell Distribution Width 16 % (10.5-15); White Blood Count 4.4 10^3/ul (3.5-10.8)
[2018-07-16 06:22] LABS: Albumin 3.1 g/dL (3.2-5.2); Albumin/Globulin Ratio 1.2 (1-3); BUN/Creatinine Ratio 19.2 (8-20); C Reactive Protein 65.36 mg/L (<8.01); Calcium 8.6 mg/dL (8.6-10.3); EGFR Non-African American 105.6 (>60); Globulin 2.6 g/dL (2-4); Potassium 3.2 mmol/L (3.5-5.0); Total Bilirubin 0.3 mg/dL (0.2-1.0); Total Protein 5.7 g/dL (6.4-8.9)
[2018-07-16] MEDS: Albuterol 2.5 MG/3 ML NEB.SOL* (0.083%) INH SCH ×3 (07:38→19:04)
[2018-07-16] MEDS: Aclidinium POWDER MDI(NF) INH SCH ×2 (07:38→20:08)
[2018-07-16] MEDS: Mometasone/Formoter 200/5 MDI INH SCH ×2 (07:38→19:05)
[2018-07-16] MEDS: predniSONE TAB* 5 MG PO SCH (08:33)
[2018-07-16] MEDS: Potassium Chlor TAB* 20 MEQ TAB.ER PO SCH (08:33)
[2018-07-16] MEDS: CMCS - Escitalopram (NF) 10 MG TAB PO SCH (08:33)
[2018-07-16] MEDS: guaiFENesin ER TAB 600 MG PO SCH ×2 (08:33→20:18)
[2018-07-16] MEDS: Torsemide TAB* 20 MG PO SCH (08:33)
[2018-07-16] MEDS: Metolazone TAB* 5 MG PO SCH (08:33)
[2018-07-16] MEDS: Multivitamins/Minerals TAB PO SCH (08:34)
[2018-07-16] MEDS: Montelukast Sodium TAB* 10 MG PO SCH (08:34)
[2018-07-16] MEDS: Primidone TAB(*) 50 MG PO SCH (08:34)
[2018-07-16] MEDS: Allopurinol TAB* 300 MG PO SCH (08:34)
[2018-07-16] MEDS: Polyethylene Glycol 3350* 17 GM PACKET PO SCH (08:35)
[2018-07-16] MEDS: Docusate CAP* 100 MG PO SCH ×2 (08:35→20:20)
--- NOTE | 2018-07-16 08:37 | DCNOTE ---
Subjective Date of Service: 07/16/18 Interval History: Mr. Martinez reports feeling better this morning, denies abdominal pain, n/v/d, and wants to go home. He states that he lives on [facility] and has spoken to his aide already, who will be coming to see him at home later this afternoon. He was able to stand up for about 10 minutes and get washed up at the sink and wait for his bed to be made. He reports that he can ambulate in his home without difficulty ("about 20 feet at a time, then I rest"). Denies fever/chills, CP, SOB, cough. He is on 3Lnc, which is his baseline O2 requirement. Tolerating PO intake. Family History: Unchanged from Admission Social History: Unchanged from Admission Past Medical History: Unchanged from Admission Objective Active Medications: Acetaminophen (Tylenol Tab*) 650 mg PO Q6H PRN PRN Reason: pain/fever Last Admin: 07/16/18 00:47 Dose: 650 mg Acetaminophen (Tylenol Tab*) 650 mg PO Q6H PRN PRN Reason: FEVER > 101 Aclidinium [place] (Tudorza Press Mdi(Nf)) 1 puff INH BID [facility] Last Admin: 07/16/18 07:38 Dose: Not Given Albuterol (Ventolin 2.5 Mg/3 Ml Neb.Trina*) 2.5 mg INH TID [facility] Last Admin: 07/16/18 07:38 Dose: 2.5 mg Allopurinol (Zyloprim Tab*) 300 mg PO DAILY [facility] Last Admin: 07/15/18 07:43 Dose: 300 mg Clonazepam (Klonopin Tab(*)) 0.25 mg PO BEDTIME [facility] Last Admin: 07/15/18 19:41 Dose: 0.25 mg Divalproex Sodium (Depakote Er Tab(*)) 2,000 mg PO BEDTIME [facility] Last Admin: 07/15/18 19:39 Dose: 2,000 mg Docusate Sodium (Colace Cap*) 200 mg PO BID [facility] Last Admin: 07/15/18 19:44 Dose: Not Given Enoxaparin Sodium (Lovenox(*)) 40 mg SUBCUT Q24H [facility] Last Admin: 07/15/18 17:13 Dose: 40 mg Escitalopram Oxalate (Lexapro (Nf)) 20 mg PO DAILY [facility] Last Admin: 07/15/18 07:32 Dose: 20 mg Guaifenesin (Mucinex*) 1,200 mg PO BID [facility] Last Admin: 07/15/18 19:43 Dose: 1,200 mg Latanoprost (Xalatan 0.005%*) 1 drop LEFT EYE 2100 [facility] Last Admin: 07/15/18 19:49 Dose: 1 drop Levalbuterol HCl (Xopenex Hfa Inhaler*) 2 puff INH Q4H PRN PRN Reason: SHORTNESS OF BREATH Loperamide HCl (Imodium Cap*) 2 mg PO Q4H PRN PRN Reason: CONSTIPATION Lurasidone HCl (Latuda) 40 mg PO 1700 [facility] Last Admin: 07/15/18 17:12 Dose: 40 mg Metolazone (Zaroxolyn Tab*) 2.5 mg PO DAILY [facility] Last Admin: 07/15/18 07:32 Dose: 2.5 mg Mometasone Furoate/Formoterol Fumar (Dulera 200/5 Mdi*) 2 puff INH BID [facility] Last Admin: 07/16/18 07:38 Dose: 2 puff Montelukast Sodium (Singulair Tab*) 10 mg PO QAM [facility] Last Admin: 07/15/18 07:31 Dose: 10 mg Multivitamins/Minerals (Theragran/Minerals Tab*) 1 tab PO DAILY [facility] Last Admin: 07/15/18 07:31 Dose: 1 tab Omeprazole (Prilosec Cap*) 40 mg PO 0700,2100 [facility] Last Admin: 07/16/18 06:04 Dose: 40 mg Polyethylene Glycol/Electrolytes (Miralax*) 17 gm PO DAILY [facility] Last Admin: 07/15/18 07:34 Dose: Not Given Potassium Chloride (Klor Con Er Tab*) 10 meq PO 1200,1700,2100 [facility] Last Admin: 07/15/18 19:48 Dose: 10 meq Potassium Chloride (Klor Con Er Tab*) 20 meq PO DAILY [facility] Last Admin: 07/15/18 07:33 Dose: 20 meq Prednisone (Deltasone Tab*) 5 mg PO DAILY [facility] Last Admin: 07/15/18 07:32 Dose: 5 mg Primidone (Mysoline Tab(*)) 150 mg PO BID [facility] Last Admin: 07/15/18 19:46 Dose: 150 mg Senna (Senokot Tab*) 2 tab PO BEDTIME [facility] Last Admin: 07/15/18 19:43 Dose: 2 tab Sucralfate (Carafate*) 1 gm PO 0700,1100,1700 [facility] Last Admin: 07/16/18 06:04 Dose: 1 gm Tamsulosin HCl (Flomax Cap*) 0.4 mg PO BEDTIME [facility] Last Admin: 07/15/18 19:46 Dose: 0.4 mg Torsemide (Demadex*) 20 mg PO DAILY [facility] Last Admin: 07/15/18 07:31 Dose: 20 mg Vital Signs - 8 hr 07/16/18 07/16/18 07/16/18 03:28 07:11 07:39 Temperature 97.4 F 97.9 F Pulse Rate 71 77 76 Respiratory 16 22 17 Rate Blood Pressure 111/54 125/58 (mmHg) O2 Sat by Pulse 99 97 97 Oximetry Oxygen Devices in Use Now: Nasal Cannula Appearance: 73 yo male, pleasant, interactive, NAD. Eyes: No Scleral Icterus, PERRLA Ears/Nose/Mouth/Throat: Clear Oropharnyx, Mucous Membranes Moist Neck: NL Appearance and Movements; NL JVP Respiratory: Symmetrical Chest Expansion and Respiratory Effort, Clear to Auscultation - mildly diminished, no rales/rhonchi/wheezing Cardiovascular: NL Sounds; No Murmurs; No JVD, RRR, - - trace BLE edema Abdominal: NL Sounds; No Tenderness; No Distention Extremities: No Clubbing, Cyanosis Neurological: Alert and Oriented x 3, NL Muscle Strength and Tone Lines/Tubes/Other Access: Clean, Dry and Intact Peripheral IV Nutrition: Taking PO's Result Diagrams: 07/16/18 05:34 07/16/18 05:34 Additional Lab and Data: Lab Results 07/14/18 07/14/18 07/14/18 Range/Units 08:22 08:22 08:22 WBC 6.4 (3.5-10.8) 10^3/ul RBC 4.94 (4.00-5.40) 10^6/ul Hgb 14.1 (14.0-18.0) g/dl Hct 43 (42-52) % MCV 87 (80-94) fL MCH 29 (27-31) pg MCHC 33 (31-36) g/dl RDW 16 H (10.5-15) % Plt Count 130 L (150-450) 10^3/ul MPV 6.9 L (7.4-10.4) fL Neut % (Auto) 79.8 % Lymph % (Auto) 9.2 % [place] % (Auto) 8.5 % Eos % (Auto) 2.2 % Baso % (Auto) 0.3 % Absolute Neuts (auto) 5.1 (1.5-7.7) 10^3/ul Absolute Lymphs (auto) 0.6 L (1.0-4.8) 10^3/ul Absolute Monos (auto) 0.5 (0-0.8) 10^3/ul Absolute Eos (auto) 0.1 (0-0.6) 10^3/ul Absolute Basos (auto) 0 (0-0.2) 10^3/ul Absolute Nucleated RBC 0 10^3/ul Nucleated RBC % 0.1 Sodium 138 (135-145) mmol/L Potassium 3.5 (3.5-5.0) mmol/L Chloride 95 L (101-111) mmol/L Carbon Dioxide 35 H (22-32) mmol/L Anion Gap 8 (2-11) mmol/L BUN 24 (6-24) mg/dL Creatinine 1.11 (0.67-1.17) mg/dL Est GFR ( Amer) 78.8 (>60) Est GFR (Non-Af Amer) 65.1 (>60) BUN/Creatinine Ratio 21.6 H (8-20) Glucose 101 H (70-100) mg/dL Lactic Acid 1.4 (0.5-2.0) mmol/L Calcium 9.5 (8.6-10.3) mg/dL Total Bilirubin 0.50 (0.2-1.0) mg/dL AST 30 (13-39) U/L ALT 11 (7-52) U/L Alkaline Phosphatase 54 (34-104) U/L C-Reactive Protein 83.81 H (<8.01) mg/L Total Protein 6.9 (6.4-8.9) g/dL Albumin 4.0 (3.2-5.2) g/dL Globulin 2.9 (2-4) g/dL Albumin/Globulin Ratio 1.4 (1-3) Lipase < 10 L (11.0-82.0) U/L Urine Color Urine Appearance Urine pH (5-9) Ur Specific [place] (1.010-1.030) Urine Protein (Negative) Urine Ketones (Negative) Urine Blood (Negative) Urine Nitrate (Negative) Urine Bilirubin (Negative) Urine Urobilinogen (Negative) Ur Leukocyte Esterase (Negative) Urine Glucose (Negative) 07/14/18 Range/Units 08:43 WBC (3.5-10.8) 10^3/ul RBC (4.00-5.40) 10^6/ul Hgb (14.0-18.0) g/dl Hct (42-52) % MCV (80-94) fL MCH (27-31) pg MCHC (31-36) g/dl RDW (10.5-15) % Plt Count (150-450) 10^3/ul MPV (7.4-10.4) fL Neut % (Auto) % Lymph % (Auto) % [place] % (Auto) % Eos % (Auto) % Baso % (Auto) % Absolute Neuts (auto) (1.5-7.7) 10^3/ul Absolute Lymphs (auto) (1.0-4.8) 10^3/ul Absolute Monos (auto) (0-0.8) 10^3/ul Absolute Eos (auto) (0-0.6) 10^3/ul Absolute Basos (auto) (0-0.2) 10^3/ul Absolute Nucleated RBC 10^3/ul Nucleated RBC % Sodium (135-145) mmol/L Potassium (3.5-5.0) mmol/L Chloride (101-111) mmol/L Carbon Dioxide (22-32) mmol/L Anion Gap (2-11) mmol/L BUN (6-24) mg/dL Creatinine (0.67-1.17) mg/dL Est GFR ( Amer) (>60) Est GFR (Non-Af Amer) (>60) BUN/Creatinine Ratio (8-20) Glucose (70-100) mg/dL Lactic Acid (0.5-2.0) mmol/L Calcium (8.6-10.3) mg/dL Total Bilirubin (0.2-1.0) mg/dL AST (13-39) U/L ALT (7-52) U/L Alkaline Phosphatase (34-104) U/L C-Reactive Protein (<8.01) mg/L Total Protein (6.4-8.9) g/dL Albumin (3.2-5.2) g/dL Globulin (2-4) g/dL Albumin/Globulin Ratio (1-3) Lipase (11.0-82.0) U/L Urine Color Yellow Urine Appearance Clear Urine pH 5.0 (5-9) Ur Specific [place] 1.018 (1.010-1.030) Urine Protein Negative (Negative) Urine Ketones Negative (Negative) Urine Blood Negative (Negative) Urine Nitrate Negative (Negative) Urine Bilirubin Negative (Negative) Urine Urobilinogen Negative (Negative) Ur Leukocyte Esterase Negative (Negative) Urine Glucose Negative (Negative) Microbiology and Other Data: Microbiology 07/14/18 08:21 Aerobic Blood Culture - Preliminary Blood Venous No Growth Day 1 Anaerobic Blood Culture - Preliminary No Growth Day 1 07/14/18 08:21 Aerobic Blood Culture - Preliminary Blood Venous No Growth Day 1 Anaerobic Blood Culture - Preliminary No Growth Day 1 07/14/18 17:00 Stool Gross Appearance - Final Stool C. difficile DNA Amplification - Final 027 Presumptive NEGATIVE Toxigenic C.diff NEGATIVE Assess/Plan/Problems-Billing Assessment: Mr. Martinez is a 73-year-old male with a PMH of COPD and chronic hypoxic respiratory failure (on 2 to 3 L nasal cannula routinely), MICKEY with CPAP, urinary retention, chronic intentional tremor, bladder cancer s/p TURP, gout, BPH, depression, and glaucoma who was admitted with concern for diarrhea x1 and weakness with family concern for inability to continue care for self at the current level of care. - Patient Problems (1) Diarrhea Code(s): R19.7 - DIARRHEA, UNSPECIFIED Comment: Improved, abdominal pain has mostly resolved Suspect gastroenteritis Stool studies pending, negative C. diff Tolerating PO intake (2) Weakness Code(s): R53.1 - WEAKNESS Comment: Lives independently with aides Patient has chronic intentional tremor but is able to ambulate with walker 20- 40 feet with rest periods and was observed being able to wash himself at the sink. Biggest struggle is feeding himself (due to tremor). He states his aides help him with this. No acute rehab needs identified by PT. He does not wish to stay until tomorrow for OT evaluation. (3) Chronic hypoxemic respiratory failure Comment: Requiring 2 to 3L nc at baseline He is on his baseline O2 requirement. (4) COPD (chronic obstructive pulmonary disease) Code(s): J44.9 - CHRONIC OBSTRUCTIVE PULMONARY DISEASE, UNSPECIFIED Comment: Oxygen dependent x 10 years On prednisone chronically at 5 mg Reports improvement in breathing and congestion Continue guaifenesin ER (states he has at home) Continue Tudorza Pressair and Dulera Non-toxic appearing with no increased O2 demands Encourage incentive spirometry at home (5) Leg edema Code(s): R60.0 - LOCALIZED EDEMA Comment: Trace BLE edema, suspect secondary to HF Does not appear to be in acute CHF exacerbation Continue chronic Zaroxolyn and Demadex (6) Tremor Code(s): R25.1 - TREMOR, UNSPECIFIED Comment: Chronic, possibly benign familial Continue primidone, depakote (7) DVT prophylaxis Comment: Lovenox Status and Disposition: OBV admit. D/c to home. Attending: Bhavya Narvaez
[2018-07-16] MEDS: Potassium Chlor TAB* 10 MEQ TAB.ER PO SCH ×3 (12:05→20:35)
--- NOTE | 2018-07-16 13:10 | PN ---
Hospitalist Progress Note Date of Service: 07/16/18 Patient's daughter, Daniela, called from [place]. She is very upset over his discharge and states that her father is manipulative and lies and "says whatever he needs to in order to get what he wants." She states he is not safe at home and that he does not use his walker at home when he is there unless someone is there evaluating him. She also reports that he is not safe with his finances and is manipulating his sister (her aunt). Her aunt is apparently fatigued by taking care of him and has stated that she "cannot do it anymore." Daniela is working with a group social worker in the community but has been told that there is not much that can be done at this time. We discussed offering to have him stay overnight one additional day for the OT consult, as his biggest complaint is difficulty feeding himself do to tremor. After discussion, he did agree to this. Discharge order rescinded. Plan for OT consult tomorrow, as well as SW consult to evaluate further outpatient needs. Patient may benefit from APS consult.
[2018-07-16] MEDS: Enoxaparin(*) 40 MG/0.4 ML SYR SUBCUT SCH (16:20)
[2018-07-16] MEDS: Propranolol TAB* 20 MG PO SCH ×2 (16:20→20:17)
[2018-07-16] MEDS: Budesonide NEB* 0.5 MG/2 ML NEB.SOLN INH SCH (19:04)
[2018-07-16] MEDS: Divalproex ER TAB(*) 500 MG PO SCH (20:15)
[2018-07-16] MEDS: clonazePAM TAB(*) 0.5 MG PO SCH (20:16)
[2018-07-16] MEDS: Senna TAB PO SCH (20:17)
[2018-07-16] MEDS: Gabapentin CAP(*) 300 MG PO SCH (20:17)
[2018-07-16] MEDS: Tamsulosin CAP* 0.4 MG PO SCH (20:18)
[2018-07-16] MEDS: CMC:OMEGA-3 FATTY ACIDS (NF) 1,000 MG CAP PO SCH (20:21)
[2018-07-16] MEDS: NF:Brimonidine P 0.15%(NF) OPH SOL 5 ML BTL BOTH EYES SCH (20:30)
[2018-07-16] MEDS: ASENAPINE 5 MG SL SCH (20:35)
[2018-07-16] MEDS: Latanoprost 0.005%* 2.5 ml BTL LEFT EYE SCH (20:36)
[2018-07-17] MEDS: Acetaminophen TAB* 325 MG PO PRN ×2 (04:27→19:21)
[2018-07-17] MEDS: Omeprazole CAP (NF) 20 MG CAP.DR PO SCH ×2 (05:46→20:37)
[2018-07-17] MEDS: Sucralfate TAB* 1 GM PO SCH ×3 (05:47→15:23)
[2018-07-17] MEDS: CMC:OMEGA-3 FATTY ACIDS (NF) 1,000 MG CAP PO SCH ×3 (07:37→20:40)
[2018-07-17] MEDS: Torsemide TAB* 20 MG PO SCH (07:37)
[2018-07-17] MEDS: Metolazone TAB* 5 MG PO SCH (07:38)
[2018-07-17] MEDS: clonazePAM TAB(*) 0.5 MG PO SCH ×3 (07:38→20:38)
[2018-07-17] MEDS: Potassium Chlor TAB* 20 MEQ TAB.ER PO SCH (07:39)
[2018-07-17] MEDS: Propranolol TAB* 20 MG PO SCH ×3 (07:40→20:39)
[2018-07-17] MEDS: guaiFENesin ER TAB 600 MG PO SCH ×2 (07:41→20:38)
[2018-07-17] MEDS: Montelukast Sodium TAB* 10 MG PO SCH (07:42)
[2018-07-17] MEDS: Gabapentin CAP(*) 300 MG PO SCH ×3 (07:42→20:36)
[2018-07-17] MEDS: predniSONE TAB* 5 MG PO SCH (07:44)
[2018-07-17] MEDS: CMCS - Escitalopram (NF) 10 MG TAB PO SCH (07:44)
[2018-07-17] MEDS: Allopurinol TAB* 300 MG PO SCH (07:45)
[2018-07-17] MEDS: Multivitamins/Minerals TAB PO SCH (07:46)
[2018-07-17] MEDS: Docusate CAP* 100 MG PO SCH ×2 (07:50→20:36)
[2018-07-17] MEDS: Polyethylene Glycol 3350* 17 GM PACKET PO SCH (07:50)
[2018-07-17 08:23] LABS: ABS Basophils 0 10^3/ul (0-0.2); ABS Eosinophils 0.4 10^3/ul (0-0.6); ABS Lymphocytes 1.7 10^3/ul (1.0-4.8); ABS Monocytes 0.7 10^3/ul (0-0.8); ABS Neutrophils 3.3 10^3/ul (1.5-7.7); ABS Nucleated RBC 0 10^3/ul; Eosinophil % 5.9 %; Hematocrit 42 % (42-52); Hemoglobin 13.7 g/dl (14.0-18.0); Lymphocyte % 27.5 %; Mean Corpuscular HGB Conc 32 g/dl (31-36); Mean Corpuscular Hemoglobin 28 pg (27-31); Mean Corpuscular Volume 87 fL (80-94); Mean Platelet Volume 6.6 fL (7.4-10.4); Nucleated Red Blood Cells % 0.1; Platelet Count 135 10^3/ul (150-450); Red Blood Count 4.86 10^6/ul (4.00-5.40); Red Cell Distribution Width 16 % (10.5-15); White Blood Count 6.1 10^3/ul (3.5-10.8)
[2018-07-17 08:41] LABS: BUN/Creatinine Ratio 16.5 (8-20); Calcium 9.8 mg/dL (8.6-10.3); EGFR Non-African American 96.4 (>60); Potassium 3.7 mmol/L (3.5-5.0)
[2018-07-17] MEDS ORDERED: Azithromycin TAB* 250 MG PO SCH (09:00)
[2018-07-17] MEDS: Albuterol 2.5 MG/3 ML NEB.SOL* (0.083%) INH SCH ×3 (09:10→19:41)
[2018-07-17] MEDS: Mometasone/Formoter 200/5 MDI INH SCH ×2 (09:11→19:42)
[2018-07-17] MEDS: Budesonide NEB* 0.5 MG/2 ML NEB.SOLN INH SCH ×2 (09:23→19:41)
[2018-07-17] MEDS: Aclidinium POWDER MDI(NF) INH SCH ×2 (09:42→19:19)
[2018-07-17] MEDS: NF:Brimonidine P 0.15%(NF) OPH SOL 5 ML BTL BOTH EYES SCH ×2 (09:48→20:35)
[2018-07-17] MEDS: NF:Fluticasone/Vilanterol MDI(NF) 100/25 MDI INH SCH (09:48)
[2018-07-17] MEDS: Potassium Chlor TAB* 10 MEQ TAB.ER PO SCH ×3 (10:11→20:46)
[2018-07-17] MEDS: Enoxaparin(*) 40 MG/0.4 ML SYR SUBCUT SCH (15:24)
--- NOTE | 2018-07-17 15:47 | PN ---
Subjective Date of Service: 07/17/18 Interval History: Patient reports he feels improved and is hoping to go home. Hospital aide assisting with meals. Per nurse patient ambulated to bathroom today without difficulty. OT eval'ed. See their note. Denies abd pain. Reports diarrhea has "resolved". Denies nausea or vomiting. Tolerating regular diet without difficulty Denies cp, sob, palpitations, weakness. Family History: Unchanged from Admission Social History: Unchanged from Admission Past Medical History: Unchanged from Admission Objective Active Medications: Acetaminophen (Tylenol Tab*) 650 mg PO Q6H PRN PRN Reason: pain/fever Last Admin: 07/17/18 04:27 Dose: 650 mg Acetaminophen (Tylenol Tab*) 650 mg PO Q6H PRN PRN Reason: FEVER > 101 Aclidinium [place] (Tudorza Pressair Mdi(Nf)) 1 puff INH BID [facility] Last Admin: 07/17/18 09:42 Dose: Not Given Albuterol (Ventolin 2.5 Mg/3 Ml Neb.Trina*) 2.5 mg INH TID [facility] Last Admin: 07/17/18 14:17 Dose: 2.5 mg Allopurinol (Zyloprim Tab*) 300 mg PO DAILY [facility] Last Admin: 07/17/18 07:45 Dose: 300 mg Asenapine (Saphris(Nf)) 5 mg SL BEDTIME [facility] Last Admin: 07/16/18 20:35 Dose: Not Given Azithromycin (Zithromax Tab*) 500 mg PO MoWeFr [facility] Last Admin: 07/17/18 10:11 Dose: 500 mg Brimonidine Tartrate (Alphagan P 0.15%(Nf)) 1 drop BOTH EYES BID [facility] Last Admin: 07/17/18 09:48 Dose: Not Given Budesonide (Pulmicort Neb*) 0.5 mg INH BID [facility] Last Admin: 07/17/18 09:23 Dose: 0.5 mg Clonazepam (Klonopin Tab(*)) 0.5 mg PO TID [facility] Last Admin: 07/17/18 15:26 Dose: Not Given Divalproex Sodium (Depakote Er Tab(*)) 1,500 mg PO BEDTIME [facility] Last Admin: 07/16/18 20:15 Dose: 1,500 mg Docusate Sodium (Colace Cap*) 200 mg PO BID [facility] Last Admin: 07/17/18 07:50 Dose: Not Given Enoxaparin Sodium (Lovenox(*)) 40 mg SUBCUT Q24H [facility] Last Admin: 07/17/18 15:24 Dose: 40 mg Escitalopram Oxalate (Lexapro (Nf)) 20 mg PO DAILY [facility] Last Admin: 07/17/18 07:44 Dose: 20 mg Fish Oil (Fish Oil (Nf)) 1,000 mg PO TID [facility] Last Admin: 07/17/18 15:21 Dose: 1,000 mg Fluticasone/Vilanterol (Breo Ellipta Mdi 100/25(Nf)) 1 puff INH DAILY [facility] Last Admin: 07/17/18 09:48 Dose: Not Given Gabapentin (Neurontin Cap(*)) 600 mg PO TID [facility] Last Admin: 07/17/18 15:26 Dose: Not Given Guaifenesin (Mucinex*) 1,200 mg PO BID [facility] Last Admin: 07/17/18 07:41 Dose: 1,200 mg Latanoprost (Xalatan 0.005%*) 1 drop LEFT EYE 2100 [facility] Last Admin: 07/16/18 20:36 Dose: 1 drop Levalbuterol HCl (Xopenex Hfa Inhaler*) 2 puff INH Q4H PRN PRN Reason: SHORTNESS OF BREATH Loperamide HCl (Imodium Cap*) 2 mg PO Q4H PRN PRN Reason: CONSTIPATION Metolazone (Zaroxolyn Tab*) 2.5 mg PO DAILY [facility] Last Admin: 07/17/18 07:38 Dose: 2.5 mg Mometasone Furoate/Formoterol Fumar (Dulera 200/5 Mdi*) 2 puff INH BID [facility] Last Admin: 07/17/18 09:11 Dose: 2 puff Montelukast Sodium (Singulair Tab*) 10 mg PO QAM [facility] Last Admin: 07/17/18 07:42 Dose: 10 mg Multivitamins/Minerals (Theragran/Minerals Tab*) 1 tab PO DAILY [facility] Last Admin: 07/17/18 07:46 Dose: 1 tab Omeprazole (Prilosec Cap*) 40 mg PO 0700,2100 [facility] Last Admin: 07/17/18 05:46 Dose: 40 mg Polyethylene Glycol/Electrolytes (Miralax*) 17 gm PO DAILY [facility] Last Admin: 07/17/18 07:50 Dose: Not Given Potassium Chloride (Klor Con Er Tab*) 10 meq PO 1200,1700,2100 [facility] Last Admin: 07/17/18 15:23 Dose: 10 meq Potassium Chloride (Klor Con Er Tab*) 20 meq PO DAILY [facility] Last Admin: 07/17/18 07:39 Dose: 20 meq Prednisone (Deltasone Tab*) 5 mg PO DAILY [facility] Last Admin: 07/17/18 07:44 Dose: 5 mg Propranolol HCl (Inderal Tab*) 20 mg PO TID [facility] Last Admin: 07/17/18 15:22 Dose: 20 mg Senna (Senokot Tab*) 2 tab PO BEDTIME [facility] Last Admin: 07/16/18 20:17 Dose: Not Given Sucralfate (Carafate*) 1 gm PO 0700,1100,1700 [facility] Last Admin: 07/17/18 15:23 Dose: 1 gm Tamsulosin HCl (Flomax Cap*) 0.4 mg PO BEDTIME [facility] Last Admin: 07/16/18 20:18 Dose: 0.4 mg Torsemide (Demadex*) 20 mg PO DAILY [facility] Last Admin: 07/17/18 07:37 Dose: 20 mg Vital Signs - 8 hr 07/17/18 07/17/18 07/17/18 07:42 07:52 08:17 Temperature 98 F Pulse Rate 67 Respiratory 16 16 18 Rate Blood Pressure 125/64 (mmHg) O2 Sat by Pulse 95 Oximetry 07/17/18 07/17/18 07/17/18 09:12 09:49 11:48 Temperature 99.0 F Pulse Rate 58 54 Respiratory 20 18 18 Rate Blood Pressure 119/62 (mmHg) O2 Sat by Pulse 96 96 Oximetry 07/17/18 07/17/18 14:19 15:26 Temperature Pulse Rate 72 Respiratory 18 16 Rate Blood Pressure (mmHg) O2 Sat by Pulse 96 Oximetry Oxygen Devices in Use Now: Nasal Cannula Appearance: Comfortable, NAD Eyes: No Scleral Icterus Ears/Nose/Mouth/Throat: Clear Oropharnyx, Mucous Membranes Moist Neck: NL Appearance and Movements; NL JVP Respiratory: Symmetrical Chest Expansion and Respiratory Effort, - - Slight decreased airflow. Scant wheezing noted. Cardiovascular: NL Sounds; No Murmurs; No JVD, RRR, No Edema Abdominal: NL Sounds; No Tenderness; No Distention Extremities: No Edema Skin: No Rash or Ulcers Neurological: Alert and Oriented x 3, NL Muscle Strength and Tone Nutrition: Taking PO's Result Diagrams: 07/17/18 08:09 07/17/18 08:09 Additional Lab and Data: Laboratory Results - last 24 hr 07/17/18 07/17/18 08:09 08:09 WBC 6.1 RBC 4.86 Hgb 13.7 L Hct 42 MCV 87 MCH 28 MCHC 32 RDW 16 H Plt Count 135 L MPV 6.6 L Neut % (Auto) 53.8 Lymph % (Auto) 27.5 [place] % (Auto) 12.1 Eos % (Auto) 5.9 Baso % (Auto) 0.7 Absolute Neuts (auto) 3.3 Absolute Lymphs (auto) 1.7 Absolute Monos (auto) 0.7 Absolute Eos (auto) 0.4 Absolute Basos (auto) 0 Absolute Nucleated RBC 0 Nucleated RBC % 0.1 Sodium 135 Potassium 3.7 Chloride 89 L Carbon Dioxide 36 H Anion Gap 10 BUN 13 Creatinine 0.79 Est GFR ( Amer) 116.7 Est GFR (Non-Af Amer) 96.4 BUN/Creatinine Ratio 16.5 Glucose 81 Calcium 9.8 Microbiology and Other Data: Microbiology 07/14/18 08:21 Blood Venous Aerobic Blood Culture - Preliminary No Growth Day 3 07/14/18 08:21 Blood Venous Anaerobic Blood Culture - Preliminary No Growth Day 3 07/14/18 08:21 Blood Venous Aerobic Blood Culture - Preliminary No Growth Day 3 07/14/18 08:21 Blood Venous Anaerobic Blood Culture - Preliminary No Growth Day 3 Assess/Plan/Problems-Billing Assessment: Mr. Martinez is a 73-year-old male with a PMH of COPD and chronic hypoxic respiratory failure (on 2 to 3 L nasal cannula routinely), MIKCEY with CPAP, urinary retention, chronic intentional tremor, bladder cancer s/p TURP, gout, BPH, depression, and glaucoma who was admitted with concern for diarrhea x1 and weakness with family concern for inability to continue care for self at the current level of care. - Patient Problems (1) Diarrhea Comment: - Diarrhea has resolved per patient. Abdominal pain resolved - Suspect gastroenteritis - Stool studies negative. C. diff negative - Tolerating PO intake (2) Weakness Comment: - Lives independently with aides who will be increasing time spent with patient. - Per physical therapy patient was independent with all bed transfers and requires contact guard assist for sit to stand and gait. In addition he uses power wheelchair at home when walking distances longer than 20 feet or so, per patient. Finally, he was able to ambulate ~40 feet in spurts of 20 with rolling walker and contact guard assist (3) Chronic hypoxemic respiratory failure Comment: Requiring 2 to 3L nc at baseline He is on his baseline O2 requirement. (4) COPD (chronic obstructive pulmonary disease) Comment: Oxygen dependent x 10 years On prednisone chronically at 5 mg Reports improvement in breathing and congestion Continue guaifenesin ER (states he has at home) Continue Tudorza Pressair and Dulera Non-toxic appearing with no increased O2 demands Encourage incentive spirometry at home (5) Tremor Comment: Chronic, possibly benign familial Continue primidone, depakote (6) DVT prophylaxis Comment: Lovenox Status and Disposition: OBV admit. D/C home tomorrow. Attending: Young Mccarthy
[2018-07-17] MEDS: ASENAPINE 5 MG SL SCH (20:35)
[2018-07-17] MEDS: Senna TAB PO SCH (20:36)
[2018-07-17] MEDS: Tamsulosin CAP* 0.4 MG PO SCH (20:37)
[2018-07-17] MEDS: Divalproex ER TAB(*) 500 MG PO SCH (20:39)
[2018-07-17] MEDS: Latanoprost 0.005%* 2.5 ml BTL LEFT EYE SCH (20:42)
[2018-07-18] MEDS: Sucralfate TAB* 1 GM PO SCH ×2 (06:06→12:34)
[2018-07-18] MEDS: Omeprazole CAP (NF) 20 MG CAP.DR PO SCH (06:06)
[2018-07-18] MEDS: Acetaminophen TAB* 325 MG PO PRN (06:09)
[2018-07-18] MEDS: Albuterol 2.5 MG/3 ML NEB.SOL* (0.083%) INH SCH ×2 (07:14→13:19)
[2018-07-18] MEDS: Budesonide NEB* 0.5 MG/2 ML NEB.SOLN INH SCH (07:14)
[2018-07-18] MEDS: Aclidinium POWDER MDI(NF) INH SCH (07:15)
[2018-07-18] MEDS: Mometasone/Formoter 200/5 MDI INH SCH (07:16)
[2018-07-18] MEDS: CMC:OMEGA-3 FATTY ACIDS (NF) 1,000 MG CAP PO SCH ×2 (09:08→14:01)
[2018-07-18] MEDS: Torsemide TAB* 20 MG PO SCH (09:09)
[2018-07-18] MEDS: Gabapentin CAP(*) 300 MG PO SCH (09:09)
[2018-07-18] MEDS: Potassium Chlor TAB* 20 MEQ TAB.ER PO SCH (09:09)
[2018-07-18] MEDS: clonazePAM TAB(*) 0.5 MG PO SCH ×5 (09:09→13:57)
[2018-07-18] MEDS: predniSONE TAB* 5 MG PO SCH (09:09)
[2018-07-18] MEDS: CMCS - Escitalopram (NF) 10 MG TAB PO SCH (09:10)
[2018-07-18] MEDS: Docusate CAP* 100 MG PO SCH (09:10)
[2018-07-18] MEDS: guaiFENesin ER TAB 600 MG PO SCH (09:10)
[2018-07-18] MEDS: Allopurinol TAB* 300 MG PO SCH (09:11)
[2018-07-18] MEDS: Montelukast Sodium TAB* 10 MG PO SCH (09:11)
[2018-07-18] MEDS: Multivitamins/Minerals TAB PO SCH (09:11)
[2018-07-18] MEDS: Metolazone TAB* 5 MG PO SCH (09:12)
[2018-07-18] MEDS: NF:Brimonidine P 0.15%(NF) OPH SOL 5 ML BTL BOTH EYES SCH (09:21)
[2018-07-18] MEDS: Polyethylene Glycol 3350* 17 GM PACKET PO SCH (09:22)
[2018-07-18 12:36] VITALS: BP 116/62
--- NOTE | 2018-07-18 12:42 | DS ---
CC: Dr. Salinas* DISCHARGE SUMMARY: DATE OF ADMISSION: 07/14/18 DATE OF DISCHARGE: 07/18/18 PRIMARY CARE PROVIDER: Dr. Salinas. ATTENDING PHYSICIAN: Dr. Young Mccarthy * (dictated by Angela Richards NP.) PRIMARY DIAGNOSES: 1. Weakness. 2. Diarrhea. SECONDARY DIAGNOSES: 1. Chronic obstructive pulmonary disease, on 2 to 3 L nasal cannula. 2. Obstructive sleep apnea with CPAP. 3. History of urinary retention in 2015. 4. History of hip fracture 2015. 5. Chronic intentional tremor. 6. Bladder cancer, status post transurethral resection of the prostate. 7. Gout. 8. Benign prostatic hypertrophy. 9. Depression. 10. Glaucoma. CONSULTATIONS WHILE IN THE HOSPITAL: There were no consultations. PROCEDURES WHILE IN THE HOSPITAL: There were no procedures. STUDIES WHILE IN THE HOSPITAL: Chest x-ray: Impression: Likely atelectasis in lung bases. DISCHARGE MEDICATIONS: [place] Medications: No new home medications. Continued Home Medications: 1. Inderal 20 mg p.o. t.i.d. 2. Asenapine 5 mg p.o. at bedtime. 3. Klonopin 0.5 mg p.o. t.i.d. 4. Depakote ER 1500 mg p.o. at bedtime. 5. Pulmicort neb 0.5 mg inhalation b.i.d. 6. Breo Ellipta 100/25, one inhalation daily. 7. Azithromycin 500 mg p.o. 3 times a week. 8. Acetaminophen extra strength 1000 mg p.o. b.i.d. p.r.n. 9. Gabapentin 600 mg p.o. t.i.d. 10. Lexapro 20 mg p.o. daily. 11. Colace 200 mg p.o. b.i.d. 12. Voltaren gel 1 application topical b.i.d. p.r.n. 13. Clarinex 5 mg p.o. daily. 14. Multivitamin 1 tab p.o. daily. 15. Singulair 10 mg p.o. q.a.m. 16. Metolazone 2.5 mg p.o. daily. 17. Imodium 2 mg p.o. q.4 hours p.r.n. 18. Xopenex inhaler 2 puffs inhalation q.4 hours p.r.n. 19. Latanoprost 0.005%, 1 drop left eye at 2100. 20. Senokot 2 tabs p.o. at bedtime. 21. Potassium chloride 10 mEq p.o. q.i.d. 22. MiraLax 17 g p.o. daily. 23. Omeprazole 40 mg p.o. b.i.d. 24. [place]-3 fatty acid 1 cap p.o. t.i.d. 25. Prednisone 5 mg p.o. daily. 26. Torsemide 20 mg p.o. daily. 27. Flomax 0.4 mg p.o. at bedtime. 28. Carafate 1 g p.o. t.i.d. with meals. 29. Allopurinol 300 mg p.o. daily. 30. Albuterol nebulizer 2.5 mg inhalations t.i.d. 31. Tudorza Pressair 400 mcg inhalation b.i.d. 32. Brimonidine 0.15% 1 drop both eyes b.i.d. 33. Mucinex 1200 mg p.o. b.i.d. Changed Home Medications: No home medications were changed but discussed holding all medications including Senokot and Colace if diarrhea returns. Discontinued Home Medications: No home medications were discontinued. HISTORY OF PRESENT ILLNESS/HOSPITAL COURSE: Mr. Martinez is a 73-year-old male with a past medical history of COPD, which he is on 2 to 3 L nasal cannula at home, chronic intentional tremor, obstructive sleep apnea, bladder cancer, status post TURP, who presented on 07/14/18 to the emergency department with concern for an episode of diarrhea and weakness. Please see history and physical dictated by Shraddha Banegas NP for the complete summary of events leading up to admission, but in short, the patient has aide to come check on him and on 07/14/18, they found him in his chair in his own stool and he was very weak. During his emergency room stay, he denied any associated symptoms including chest pain, shortness of breath, nausea, vomiting. He also did not have any diarrhea while in the emergency department and he also denied abdominal pain. In addition, his workup revealed no leukocytosis, no fever and no acute findings on abdominal exam. The emergency staff spoke to his daughter to indicate that the patient needed increasing help with ADLs at home and the family was concerned that he might need skilled nursing placement. Therefore, we were asked to evaluate for admission and further workup of weakness and diarrhea , in addition to discussing possible placement if necessary. During Mr. Martinez's hospital stay, his vital signs have remained stable. He has been afebrile. He has had no incidence of tachycardia and he has been stable on 3 L nasal cannula, which is his home oxygen rate. He has been free from leukocytosis. While admitted on the medical floor, he did have 3 bowel movements on 07/15/18, which were small but more formed. He additionally had 2 bowel movements on 07/16/18 and patient reports they were more formed. He has not had a bowel movement as of 07/17/18. The patient reports he believes his diarrhea has resolved. Due to the concern for weakness, the patient was also evaluated by our physical therapy team, who reports he was independent with all bed transfers and requires only a contact guard assist for sit to stand. He also uses a power wheelchair at home when he has to walk long distances and he defines long distances of greater than 20 feet. During the physical therapy evaluation, it was documented that the patient was able to ambulate approximately 40 feet and spurts 20 with rolling walker and contact guard. The patient was also evaluated by our occupational therapist, who reports that he is able to complete bed mobility independently and then complete functional mobility into the bathroom independently. In addition, he was toileting independently and managing his O2 tubing independently. She recommends that the patient receive additional services at home. Mr. Martinez is stable for discharge to home with an increase physical medicine teacher presence. Vital signs are temp 98.8, pulse 70, respirations 28 (it should be noted the patient was receiving a breathing treatment), O2 saturation 94% on 3 L , and BP 106/52. REVIEW OF SYSTEMS: A 14-point review of systems was completed with the patient and all were negative. The patient states he is ready for discharge. PHYSICAL EXAMINATION: General: Mr. Martinez is a well-developed, slightly obese , elderly man, sitting in bed, in no acute distress. Appears stated age. HEENT: EOMs intact. PERRLA. Oral mucosa is moist and without lesion. Neck: Full range of motion. No lymphadenopathy. Respiratory: Symmetrical chest expansion. No accessory muscle use. Lung sounds have sporadic wheeze. Good aeration. No rhonchi or rubs. CV: Regular rate and rhythm. S1/S2 present. No murmurs, rubs, or gallops. Extremities: Skin is warm and smooth bilaterally. No edema. No clubbing or cyanosis. Pedal pulses 2+ bilaterally. Musculoskeletal: No pain or deformities. Abdomen: Soft, nontender to palpation. Bowel sounds x4. Neuro: The patient is awake, alert, and oriented x4. Skin: Grossly intact without lesions. DIAGNOSTIC STUDIES/LAB DATA: Labs drawn on 07/17/18, WBC 6.1, hemoglobin 13.7, hematocrit 42, platelet 135. Sodium 135, potassium 3.7, chloride 89, carbon dioxide 36, BUN 13, creatinine 0.79. FOLLOWUP/DISCHARGE PLAN: 1. Weakness: As mentioned above, the patient is ambulating well and completing ADLs. Weakness has improved. The etiology of initial presentation of weakness is unclear, but we suspect is related to gastroenteritis or a viral illness. The patient is going to be discharged home with an increased presence of home health aide. I have discussed with patient the importance of using his walker for safety. 2. Diarrhea: Diarrhea has resolved. Again the etiology is unclear. We suspect it is possibly a viral illness that has since resolved. I discussed with the patient slowly advancing diet and monitoring stools. If patient's stool becomes soft again, he should hold his Senokot and Colace and follow up with primary care for further evaluation. 3. COPD: The patient should continue his supplemental oxygen as same. The patient should continue his inhalers and steroids as same. The patient should follow up with his primary care provider as needed. 4. Obstructive sleep apnea with CPAP: The patient should continue use of CPAP. 5. History of urinary retention: Follow with primary care provider as needed. Continue Flomax. 6. History of right hip fracture: Follow up as needed. 7. Chronic essential tremor: The patient should continue meds as same and follow up with primary care provider as needed. Due to tremor, the patient needs increased assistance with feeding, but otherwise is completing ADLs well. 8. Bladder cancer, status post TURP: The patient should follow up with primary care as needed and continue Flomax. 9. Gout: The patient should continue medications as same and follow up with primary care provider as needed. 10. BPH: Continue meds as same. 11. Depression: The patient should continue Lexapro as previously prescribed and follow up with primary care as needed. 12. Glaucoma: The patient is to continue eye drops as same and follow up with brick loader, manager management, primary care as needed. 13. Education: The patient should return to the ED or nearest hospital if he experiences any new or worsening symptoms, shortness of breath, lightheadedness , dizziness, chest discomfort, high fevers, chills, night sweats, loss of consciousness, any other worsening signs or symptoms. This is a summarized report of a complex medical history and hospital stay. For further details, please see the entire medical record. This plan was discussed with my attending, Dr. Andrea Mccarthy, who agrees with my plan. TIME SPENT: Approximately 30 minutes was spent on this discharge, greater than half that time was spent [id number] with the patient discussing discharge plan and instructions. ANGELA RICHARDS, GUILHERME [id number]/CPS #: [id number] [facility]
[2018-07-18] MEDS: NF:Fluticasone/Vilanterol MDI(NF) 100/25 MDI INH SCH (13:15)
[2018-07-18] MEDS: Propranolol TAB* 20 MG PO SCH ×2 (13:15→14:01)
[2018-07-18] MEDS: Potassium Chlor TAB* 10 MEQ TAB.ER PO SCH (13:57)
[2018-07-18] MEDS ORDERED: Gabapentin CAP(*) 300 MG PO SCH (14:00)
== END 2018-07-18 15:00 | disposition home or self-care (01) | DRG 392 ==
LOC: ED 07:54 → MED 09:28 → OBSVTOIN 07-15 17:58
PROVIDERS: ADMIT Internal Medicine; ATTEND Internal Medicine
DX: A08.4 Viral intestinal infection, unspecified (principal); J96.11 Chronic respiratory failure with hypoxia; R33.9 Retention of urine, unspecified; J44.9 Chronic obstructive pulmonary disease, unspecified; G47.33 Obstructive sleep apnea (adult) (pediatric); R25.1 Tremor, unspecified; M10.9 Gout, unspecified; N40.0 Benign prostatic hyperplasia without lower urinary tract symptoms; F32.9 Major depressive disorder, single episode, unspecified; H40.9 Unspecified glaucoma; R60.0 Localized edema; M46.92 Unspecified inflammatory spondylopathy, cervical region; E66.9 Obesity, unspecified; F17.210 Nicotine dependence, cigarettes, uncomplicated; E86.0 Dehydration; F41.9 Anxiety disorder, unspecified; Z79.52 Long term (current) use of systemic steroids; Z99.3 Dependence on wheelchair; Z91.81 History of falling; Z85.118 Personal history of other malignant neoplasm of bronchus and lung; Z99.81 Dependence on supplemental oxygen; Z85.51 Personal history of malignant neoplasm of bladder; Z68.28 Body mass index [BMI] 28.0-28.9, adult
CPT/HCPCS: 36415; 71046; 80048; 80053; 80164; 81003; 82803; 83605; 83690; 85025; 86140; 87040; 87045; 87046; 87493; 87899; 94640; 99284; 99406; A9270-GY; G0378; G8978-GP-CK; G8979-GP-CI; G8987-GO-CJ; G8988-GO-CJ; G8989-GO-CJ; J1650; J7512